=== PATIENT | female | born 1975 | race Caucasian/White ===

== ENCOUNTER 2021-03-04 07:23 | Outpatient (RCR) | payer BC, SELFPAY | END 2021-06-02 23:59 | disposition home or self-care (01) | LOC: ANHVASCINF 07:23 | PROVIDERS: Visit Provider Internal Medicine Endocrinology, Diabetes & Metabolism | DX: R94.7 Abnormal results of other endocrine function studies (principal) | CPT/HCPCS: 36415; 36592; 82533; 96372; J0834 ==

== ENCOUNTER 2022-03-02 16:56 | Outpatient (CLI) | payer BC, SELFPAY ==
--- NOTE | ~2022-03-02 | XR_ITS ---
EXAMINATION: XR sacrum coccyx min 2V INDICATION: Sensory urge incontinence TECHNIQUE: Three views of the sacrum and coccyx are obtained. COMPARISON: None available FINDINGS: Bone alignment is normal. There is no fracture. A bone island is noted in the left ilium. A stimulator device is implanted in the posterior subcutaneous tissues of the right buttock. Its lead enters the left pelvis through the left S3 neural foramen. IMPRESSION: 1. No acute osseous abnormality. 2. Stimulator device implanted in the posterior subcutaneous tissues of the right buttock with its le ad entering the left pelvis through the left S3 neural foramen. Reviewed, dictated and finalized at location F. IMPRESSION: 1. No acute osseous abnormality. 2. Stimulator device implanted in the posterior subcutaneous tissues of the rig ht buttock with its lead entering the left pelvis through the left S3 neural fo ramen.
== END 2022-03-02 16:57 | disposition home or self-care (01) ==
PROVIDERS: Visit Provider Urology
DX: N39.41 Urge incontinence (principal)
CPT/HCPCS: 72220

== ENCOUNTER 2025-01-22 13:03 | Outpatient (CLI) | payer BC, SELFPAY ==
--- NOTE | ~2025-01-22 | CT_ITS ---
CT of the Abdomen and Pelvis: Indication: Gross hematuria Technique: 2.5 mm axial scans were obtained through the abdomen and pelvis prior to and following in travenous administration of 130 cc of Omnipaque 350. Dose reduction technique was used on this scan b y utilizing automated exposure control and iterative reconstruction technique. The dose-length produc t (DLP) was 1492.23 mGy-cm. Findings: Scans through the lung bases are unremarkable. The liver, spleen, pancreas, adrenals and left kidney are within normal limits. Punctate nonobstructi ng right renal stones are present. Cholecystectomy clips are present. No evidence of aortic aneurysm. No lymphadenopathy. No bowel obstruction or bowel wall thickening. There is no evidence to suggest acute appendicitis. Images through the pelvis were performed. Urinary bladder unremarkable. Status post hysterectomy. No pelvic mass. No ascites. Impression: Punctate nonobstructing right renal stones. Reviewed, dictated and finalized at [facility]. Impression: Punctate nonobstructing right renal stones.
--- OUTSIDE RECORDS SUMMARY | 2025-01-22 13:09 | XMS_ITS | Clinical Summary ---
Author Organization [facility] Address [address] [place] [address] Care Team Providers Care Rrts Name Role Phone Leilani Wilson MD Primary Care Provider [phone] Lyle Reese MD Unavailable [phone] Josep Bernal MD Unavailable [phone] Source Comments [facility],non-owned Affiliates and Associated Physician Practices is amultiple site organization consisting of ambulatory clinics and hospital sitesin [place], [place], [place] and [place]. This disclosure is being madepursuant to the Care Everywhere program and may not contain all information available regarding this patient. Last updated 18.[facility] Allergies Active Allergy Reactions Criticality Noted Date Comments Abaloparatide Dizziness,Fever,GI Discomfort,Headache,Pa lpitations 07/29/2024 Baclofen Other 08/21/2024 UPTIGHT AND MADE HER WANT TO CLIMB THE OLSON Gabapentin Other 08/11/2024 Face numbness Pregabalin Other 08/11/2024 Lip numbness, JERKING Milnacipran Unknown 10/07/2024 Worsened depression and fibromyalgia Medications * This document contains information received from the source organization and may not represent a complete record from that organization. * Be aware that medications may not be up to date on this document. Alwaysverify current medications with the patient. meclizine (Antivert) 12.5 MG tabletIndications :Dizziness Take 2 (two) tablets by mouth 3 times daily as needed for Dizziness Reasons: Dizzy 09/03/19 23 Active cycloSPORINE (Restasis) 0.05 % ophthalmic suspension Instill 1 (one) drop into both eyes at bedtime Per patient been doing twice a day 08/02/20 22 Active clonazePAM (KlonoPIN) 2 MG tabletIndications :RLS Take 1 (one) tablet by mouth 3 times daily as needed PATIENT ONLY TAKES 2 TABS AT BEDTIME Reasons: RLS Active multivitamin daily tablet Take 1 (one) tablet by mouth daily with food Active sucralfate (Carafate) 1 GM/10ML suspension TAKE 10 ML BY MOUTH FOUR TIMES DAILY NEEDED 420 mL 5 08/23/20 23 Active simethicone (Gas-X) 125 MG capsule Take 1 (one) capsule by mouth as needed Active acetaminophen (Tylenol) 500 MG tablet Take 2 (two) tablets by mouth every 4 hours as needed for Fever or Pain Maximum allowable Acetaminophen amount = 4 Grams (4000 mg) / 24 hours. Active SUMAtriptan (Imitrex) 100 MG tabletIndications :History of migraine headaches Take medication at the onset of migraine, may repeat in 2 hours 9 tablet 5 01/10/20 24 Active Misc. Devices (Walker) MISCIndications:M ultiple falls,Unstable gait Use 1 device once daily 1 Each 01/17/20 24 Active prochlorperazine (Compazine) 10 MG tabletIndications :Nausea without vomiting Take 1 (one) tablet by mouth every 8 hours as needed for Nausea/Vomiting 90 tablet 3 03/04/20 24 Active ondansetron (Zofran) 8 MG tabletIndications :Nausea and Vomiting Take 1 (one) tablet by mouth every 8 hours as needed for Nausea/Vomiting Reasons: Nausea and Vomiting 05/12/20 24 Active magnesium hydroxide (Chuckie's Chewable) 311 MG chew tablet Take 1 (one) tablet by mouth every 12 hours as needed Active cetirizine (ZyrTEC) 10 MG tabletIndications :Seasonal Allergic Rhinitis Take 1 (one) tablet by mouth once daily Reasons: Hayfever 90 tablet 1 07/01/20 24 Active dexlansoprazole (Dexilant) 60 MG capsule Take 1 (one) capsule by mouth at bedtime 90 capsule 2 08/06/20 24 Active colchicine 0.6 MG tabletIndications :Blister of skin,Fibromyalgia ,H/O oral aphthous ulcers,Behcet's disease (HCC) Take 1 (one) tablet by mouth 2 times daily 180 tablet 1 08/14/20 24 Active hydrOXYzine HCl (Atarax) 25 MG tabletIndications :Anxiety Take 1 (one) tablet by mouth 3 times daily as needed Reasons: Feeling Anxious 270 tablet 1 08/14/20 24 Active zonisamide (Zonegran) 100 MG capsuleIndication s:Chronic nonintractable headache, unspecified headache type Take 3 (three) capsules by mouth at bedtime 270 capsule 1 08/14/20 24 Active cyclobenzaprine (Flexeril) 10 MG tabletIndications :Closed nondisplaced spiral fracture of shaft of right femur, sequela,Iliotibia l band syndrome of left side,Sensation of pressure in bladder area Take 1 (one) tablet by mouth 3 times daily 270 tablet 1 08/26/20 24 Active cyanocobalamin (Vitamin B-12) injectionIndicati ons:Vitamin B12 deficiency Inject 1,000 (one thousand) mcg subcutaneously every 14 days 1 mL 5 08/26/20 24 Active B-D 3CC LUER-NI SYR 25GX5/8 25G X 5/8 3 ML MISC INJECT 1 SYRINGE SUBCUTANEOUSLY EVERY 14 DAY 08/26/20 24 Active DULoxetine (Cymbalta) 30 MG capsuleIndication s:Fibromyalgia Take 1 (one) capsule by mouth once daily 90 capsule 1 10/07/19 25 Active meloxicam (Mobic) 15 MG tablet Take 1 (one) tablet by mouth once daily 10/30/19 25 Active HYDROcodone-aceta minophen ([place]) 5-325 MG tabletIndications :Facial pain Take 1 (one) tablet by mouth every 12 hours as needed for Pain 8 tablet 11/15/19 25 Active tiZANidine (Zanaflex) 4 MG tabletIndications :Trigeminal herpes zoster,Yeast infection,Fibromy algia,Spasm Take 1 (one) tablet by mouth at bedtime Takes flexeril during the day this works better at bedtime and flexeril better during the day 90 tablet 1 11/18/19 25 Active Artificial Tear Solution (SOOTHE XP OP) 1-2 drops by Ophthalmic route once daily ALTERNATES WITH RESTASIS Active calcium citrate (Citracal 950) 950 MG tablet Take 1 (one) tablet by mouth once daily Active nitrofurantoin monohyd macro crystals (Macrobid) 100 MG capsule Take 1 (one) capsule by mouth 2 times daily 01/18/20 25 Active oxyCODONE-acetami nophen (Percocet) 7.5-325 MG tabletIndications :S/p left hip fracture Take 1 (one) tablet by mouth every 12 hours 12 tablet 01/21/20 25 Active amitriptyline (Elavil) 75 MG tabletIndications :Fibromyalgia Take 1 (one) tablet by mouth at bedtime 90 tablet 1 01/22/20 25 Active SYRINGE/NEEDLE, DISP, 1 ML 25G X 5/8 1 ML MISCIndications:V itamin B12 deficiency Inject 1 syringe subcutaneously every 14 days 50 Each 08/26/20 24 025 Disconti nued(Lis t Clean-Up ) fluconazole (Diflucan) 200 MG tabletIndications :Yeast infection Take 1 (one) tablet by mouth once daily 2 tablet 11/18/19 25 025 Disconti nued(Tx Complete ) fluconazole (Diflucan) 200 MG tabletIndications :Yeast infection Take 1 (one) tablet by mouth once daily 5 tablet 11/20/19 25 025 Disconti nued(Tx Complete ) acyclovir (Zovirax) 400 MG tabletIndications :Trigeminal herpes zoster Take 1 (one) tablet by mouth 3 times daily 90 tablet 12/05/19 25 025 Disconti nued(Tx Complete ) pregabalin (Lyrica) 25 MG capsuleIndication s:Trigeminal herpes zoster Take 1 (one) capsule by mouth 3 times daily 45 capsule 12/11/19 25 12/25/ 025 Disconti nued(Tx Complete ) amoxicillin-clavu lanate (Augmentin) 875-125 MG tablet Take 1 (one) tablet by mouth 2 times daily for 10 days 20 tablet 12/15/19 25 025 Disconti nued(Tx Complete ) fluconazole (Diflucan) 150 MG tablet Take 1 (one) tablet by mouth every 3 days 3 tablet 1 12/15/19 25 025 Disconti nued(Tx Complete ) amitriptyline (Elavil) 75 MG tabletIndications :Fibromyalgia Take 1 (one) tablet by mouth at bedtime 90 tablet 1 12/17/19 25 025 Disconti nued(Reo rder) oxyCODONE-acetami nophen (Percocet) 7.5-325 MG tabletIndications :S/p left hip fracture Take 1 (one) tablet by mouth every 8 hours as needed for Pain 12 tablet 01/15/20 25 025 Disconti nued(Reo rder) Active Problems Problem Noted Date Diagnosed Date Overactive bladder 01/20/2025 Sensory urge incontinence 01/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 Severe major depressive disorder 11/24/2024 Right corneal abrasion 11/14/2024 Pain in both feet 10/07/2024 Pain of right hip 09/01/2024 Migraine without aura and wi th status migrainosus, not intractable 05/25/2024 Decreased peripheral vision of left eye 05/25/20 Closed intertrochanteric fra cture of right femur, initial encounter 05/19/2024 Status post open reduction a nd internal fixation (ORIF) of fracture 05/19/2024 Long-term current use of benzodiazepine 05/19/20 Fall from ground level 05/19/2024 Encounter for pain management 05/19/2024 Status post balloon dilatation of esophageal str icture 05/19/2024 Chronic anemia 05/19/2024 Peripheral vision loss 05/19/2024 Migraine headache 05/19/2024 Secondary hypercortisolism 05/19/2024 History of cholecystectomy 05/19/2024 History of appendectomy 05/19/2024 Class 1 obesity due to exces s calories with serious comorbidity and body mass index (BMI) of 32.0 to 32.9 in adult 05/19/2024 History of coronary angiogram 05/19/2024 Closed fracture of right hip, initial encounter 05/09/2024 Syncope and collapse 01/15/2024 Injury of head, initial encounter 01/15/2024 Palpitations 12/16/2023 Pneumonia of both lower lobes due to infectious organism 12/16/2023 Bilateral knee pain 12/16/2023 Left ankle pain 12/16/2023 Fibromyalgia 12/25/2022 Non-intractable vomiting 11/27/2022 Pituitary adenoma 10/25/2022 Hypothyroidism 07/17/2022 Abnormal EKG 07/12/2022 Sleep disturbance 07/12/2022 Flank pain 02/07/2022 Post menopausal syndrome 12/05/2021 Overview (11/27/2022): Last Assessment & Plan: Symptomatic with insomnia, hot flashes , hair loss and weight gain Patient had hysterectomy - recommended evaluation by Gynecology for possible use of ERT if indicated based on symptoms. Adhesive capsulitis of left shoulder 08/23/2021 Hypotensive episode 01/25/2021 Colitis 01/23/2021 Abnormal gait 11/11/2020 Memory impairment 11/11/2020 Abnormal thyroid function test 10/27/2020 Overview (11/27/2022): Last Assessment & Plan: Clinically euthyroid Thyroid exam shows no enlargement, masses, nodules, or tenderness Physical exam shows no bradycardia, non-pitting edema, or delayed relaxation of tendon reflexes No evidence of hyponatremia on recent basic metabolic panel Latest TSH 4.07 and Free T4 0.85 (09/15 and 09/16) Plan: Repeat thyroid function studies (TSH and Free T4) for thoroughness in setting of complex constellation of symptoms without clear etiology, but likely would not warrant treatment Adrenal insufficiency 10/27/2020 Overview (11/27/2022): Last Assessment & Plan: Etiology of low cortisol <1 at OSH unclear and perhaps secondary to corticosteroid-induced adrenal suppression; no associated pigmentation changes of the skin and mucosa; no alterations in potassium, sodium Adequate response to recent corticotropin (standard 250 mcg) stimulation test (09/17/2020) Basal: 11.2 mcg/dL 30-min: 20 mcg/dL 60-min: 21 mcg/dL Imaging: CT or MRI normal pituitary and adrenal glands Plan: No maintenance therapy required Decreased vision in both eyes 09/21/2020 Overview (11/27/2022): Hospital F/U for decreased vision, eye pain OU. Feels like eyes are straining too hard to see, especially distance (wearing glasses) and sometimes the vision goes double (even if she closes one eye). Vision OD seems like it's worse compared to last week, or trying to compensate for the left eye vision. Can still read with her right eye. Had difficulty seeing her work on the computer yesterday. Vision seemed more blurry OU in 03/2020, when she got a new prescription from her strike plate attacher. Began having dull pain at the back of both eyes in late Aug. Saw her strike plate attacher (Dr. Ajay Desir in [place]) again, who performed testing and referred her to a neurologist. Since , she's had additional symptoms including dizziness, headaches, imbalance (needs to hold on to something while walking to avoid falling), difficulty rising from a chair (cannot flex at hips). She says that her neurologist wants to order an MRI of her spinal cord, and she's having her bladder stimulator removed soon so that she can undergo the test. No eye drops. Hx gastric bypass surgery in 2004. Last Assessment & Plan: --Exam today with VA decreased at distance (OD: 20/500, OS: 20/150) but otherwise fairly normal at near (OD: J1+ (20/20), OS: J3 (20/40)). No APD on exam today, color vision decreased OU, stereovision testing with 7/9 stereodots, 3/3 animals). --Anterior and posterior exams otherwise stable and reassuring --OCT RNFL, GCC, macula all done and wnl today --Reviewed imaging w/ Dr. Turcios as well optic nerve appears normal appearing without signal abnormalities. No lesions on MRI brain as well. --Overall exam today reassuring for health of the eye with exam and testing done in clinic today. Plan: --Discussed with patient that given objective data has been reassuring today, we would hope that she has meaningful visual recovery still. However, strict return precautions given for any changes or worsening of visual symptoms. --Will RTC next available for Goldmann [facility] (tech only visit) --RTC 6 weeks for repeat DFE --Will call patient to schedule ERG as well Hospital F/U for decreased vision, eye pain OU. Feels like eyes are straining too hard to see, especially distance (wearing glasses) and sometimes the vision goes double (even if she closes one eye). Vision OD seems like it's worse compared to last week, or trying to compensate for the left eye vision. Can still read with her right eye. Had difficulty seeing her work on the computer yesterday. Vision seemed more blurry OU in 03/2020, when she got a new prescription from her strike plate attacher. Began having dull pain at the back of both eyes in late Aug. Saw her strike plate attacher (Dr. Ajay Desir in [place]) again, who performed testing and referred her to a neurologist. Since , she's had additional symptoms including dizziness, headaches, imbalance (needs to hold on to something while walking to avoid falling), difficulty rising from a chair (cannot flex at hips). She says that her neurologist wants to order an MRI of her spinal cord, and she's having her bladder stimulator removed soon so that she can undergo the test. No eye drops. Hx gastric bypass surgery in 2004. Last Assessment & Plan: --Exam today with VA decreased at distance (OD: 20/500, OS: 20/150) but otherwise fairly normal at near (OD: J1+ (20/20), OS: J3 (20/40)). No APD on exam today, color vision decreased OU, stereovision testing with 7/9 stereodots, 3/3 animals). --Anterior and posterior exams otherwise stable and reassuring --OCT RNFL, GCC, macula all done and wnl today --Reviewed imaging w/ Dr. Turcios as well optic nerve appears normal appearing without signal abnormalities. No lesions on MRI brain as well. --Overall exam today reassuring for health of the eye with exam and testing done in clinic today. Plan: --Discussed with patient that given objective data has been reassuring today, we would hope that she has meaningful visual recovery still. However, strict return precautions given for any changes or worsening of visual symptoms. --Will RTC next available for Goldmann VF (tech only visit) --RTC 6 weeks for repeat DFE --Will call patient to schedule ERG as well History of Andie-en-Y gastric bypass 11/14/2019 Urinary tract infection without hematuria 2019 Chronic fatigue 10/24/2019 Overview (11/27/2022): Last Assessment & Plan: Check fasting blood work between 7-8am for cortisol. Further testing will be based on these results. Heart palpitations 10/24/2019 Urinary tract infection with hematuria 9 Tendinitis of right shoulder 03/18/2019 Conversion disorder 04/04/2018 Folate deficiency 04/04/2018 Esophageal dysphagia 02/12/2018 Overview (11/27/2022): Last Assessment & Plan: Multiple scopes and never inflammation or stricture. 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 Last Assessment & Plan: Improved after dilation. She also maintains on Dexilant as well as Carafate. She can wean down the Carafate at this time due to her constipation Last Assessment & Plan: Multiple scopes and never inflammation or stricture. 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 Last Assessment & Plan: Improved after dilation. She also maintains on Dexilant as well as Carafate. She can wean down the Carafate at this time due to her constipation Heartburn 02/12/2018 Overview (11/27/2022): Last Assessment & Plan: Is possible at the ulceration of the patient's anastomosis which required dilation by balloon recently was causing some functional outlet obstruction of her stomach and us worsening of reflux. Still the patient should not have problems with dysphagia or heartburn while she is on all these medications. 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 Will begin mirtazapine 7.5 mg q.h.s. sulfur this will help her nausea and reduce her visceral hypersensitivity. I would then like to see her the time of endoscopy following a barium esophagram and we can make sure she does not have a stricture. I would likely empirically dilate her esophagus at the time. It also reinspect her anastomotic ulcer and see if the dilation was any benefit. I would also consider a upper GI small bowel series however I would be somewhat concerned about impaction of the barium due to prior history of constipation. Last Assessment & Plan: Is possible at the ulceration of the patient's anastomosis which required dilation by balloon recently was causing some functional outlet obstruction of her stomach and us worsening of reflux. Still the patient should not have problems with dysphagia or heartburn while she is on all these medications. 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 Will begin mirtazapine 7.5 mg q.h.s. sulfur this will help her nausea and reduce her visceral hypersensitivity. I would then like to see her the time of endoscopy following a barium esophagram and we can make sure she does not have a stricture. I would likely empirically dilate her esophagus at the time. It also reinspect her anastomotic ulcer and see if the dilation was any benefit. I would also consider a upper GI small bowel series however I would be somewhat concerned about impaction of the barium due to prior history of constipation. Iron deficiency anemia 04/20/2017 H/O gastric bypass 04/20/2017 Vitamin B12 deficiency 04/20/2017 Chest pain 12/30/2015 Interstitial cystitis 09/25/2015 Anxiety disorder 11/15/2011 Leukocytosis 11/15/2011 Small bowel obstruction 11/15/2011 Resolved Problems Problem Noted Date Diagnosed Date Resolved Date Rash 11/14/2024 12/12/2024 Pharyngitis 11/14/2024 11/28/2024 Acute otitis media 11/14/2024 5 Autoimmune disease 09/04/2024 5 Myelopathy 10/25/2022 03/14/2024 Other chronic pancreatitis 10/25/2022 0 04/01/2024 Simple febrile convulsions 10/25/2022 0 03/14/2024 Dehydration 04/25/2022 05/09/2022 Encounters Date Type Department Care Team Description 01/21/[address] [phone] Leilani Wilson MD MEDICATION REFILL 01/20/2025 1:00 PM CDT Office Visit [address] [address] Leilani Wilson MD Overactive bladder (Primary Dx); Sensory urge incontinence; S/p left hip fracture; Preoperative clearance 01/14/2025 Orders Only [address] [phone] Leilani Wilson MD S/p left hip fracture 01/13/2025 1:00 PM CDT Office Visit [facility] - Podiatry [address] [place] [phone] Polo Walton, CAMILLE Foot pain, bilateral (Primary Dx); Gait instability; Nerve pain; Gastrocnemius equinus of left lower extremity; Weakness of both lower extremities 01/06/2025 Results Follow-Up [address] [phone] Leilani Wilson MD 01/06/2025 Results Follow-Up [address] [phone] Leilani Wilson MD 01/05/2025 11:44 AM CDT - 01/05/2025 11:59 PM CDT Hospital Encounter [facility] RADI[facility] [address] [place] [address] Polo Walton, CAMILLE Discharge Disposition: Home or Self Care 01/05/2025 10:45 AM CDT - 01/05/2025 11:43 AM CDT Hospital Encounter [facility] - Laboratory [address] [place] [address] Polo Walton, CAMILLE Discharge Disposition: Home or Self Care 01/05/2025 10:37 AM CDT - 01/05/2025 10:44 AM CDT Hospital Encounter [facility] Neurosciences [address] [address] Polo Walton, CAMILLE Discharge Disposition: Home or Self Care 12/31/2024 Orders Only [address] [phone] Leilani Wilson MD Recurrent UTI 12/25/2024 12:00 PM CDT Office Visit [address] [phone] Leilani Wilson MD Recurrent UTI (Primary Dx); Multilevel spine pain 12/16/2024 Orders Only [address] [phone] Leilani Wilson MD Fibromyalgia 12/14/2024 1:36 PM CDT - 12/14/2024 3:22 PM CDT Emergency ER at [facility] [address] [place] [address] Morgan Meza, PROCESS LEAD-WIRELINE OPERATOR Flank pain; Acute cystitis with hematuria; Lower resp. tract infection Discharge Disposition: Home or Self Care 12/10/2024 Orders Only [address] [phone] Leilani Wilson MD Trigeminal herpes zoster 12/04/2024 Orders Only [address] [address] Leilani Wilson MD Trigeminal herpes zoster 12/02/2024 10:14 AM CDT - 12/02/2024 11:59 PM CDT Hospital Encounter [facility] [address] [place] [address] Babatunde Tyler MD Discharge Disposition: Home or Self Care 12/02/2024 Travel 11/25/2024 Telephone [facility] - Podiatry [address] [phone] Micheal Osman, DPM Scheduling (was able to schedule same day MRI at [facility] for 11/25; called pt to advise. She currently has shingles. She will call to schedule once she is recovered. I apologized for initial delay in scheduling.) 11/24/2024 Telephone [facility] - Podiatry [address], [address] [place] [address] Micheal Osman, DPM General 11/20/2024 2:43 PM CDT - 11/20/2024 11:59 PM CDT Hospital Encounter [facility] [address] [place] [address] Jaylen Mims MD Discharge Disposition: Home or Self Care 11/19/2024 Orders Only [address] [phone] Leilani Wilson MD Yeast infection 11/17/2024 10:20 AM CDT Office Visit [address] [phone] Leilani Wilson MD Trigeminal herpes zoster (Primary Dx); Yeast infection; Fibromyalgia; S/p left hip fracture; Spasm; Osteoporosis with current pathological fracture, unspecified osteoporosis type, initial encounter; Severe major depressive disorder 11/14/2024 1:29 PM CDT - 11/14/2024 5:45 PM CDT Emergency ER at [facility] [address] [place] [address] Leonarda Petersen APRN-ACOSTA Abrasion of right cornea, initial encounter; Rash; Pharyngitis, unspecified etiology; Acute otitis media, unspecified otitis media type; Facial pain Discharge Disposition: Home or Self Care 11/14/2024 11:00 AM CDT Office Visit [facility] [address] [place] [phone] Herpes zoster with ophthalmic complication, unspecified herpes zoster eye disease (Primary Dx) 11/14/2024 Travel 11/12/2024 Telephone [facility] - Podiatry [address] [place] [address] Polo Walton, L[place] Appointment 11/12/2024 Telephone [facility] - Podiatry [address] [place] [address] Polo Walton DPM Appointment 11/11/2024 12:30 PM CDT - 11/11/2024 11:59 PM CDT Hospital Encounter [facility] [address] [place] [address] Polo Walton, DPM Discharge Disposition: Home or Self Care 11/11/2024 12:15 PM CDT - 11/11/2024 12:29 PM CDT Hospital Encounter [facility] [address] [place] [address] Jaylen Mims MD Discharge Disposition: Home or Self Care 11/11/2024 11:30 AM CDT Office Visit [facility] - Podiatry [address] [place] [phone] Polo Walton, DPVinicius Pain in both feet (Primary Dx); Gait instability; Gastrocnemius equinus of left lower extremity; Nerve pain; Weakness of both lower extremities; Complex regional pain syndrome type 2 of both lower extremities 10/29/2024 3:30 PM 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 (AF LURIA, FLUZONE TRIVALENT; 6MO+) (IIV3) 05/26/2021 COVID MODERNA BIVALENT 12Y+ 50MCG/0.5ML 07/28/20 22 Covid Moderna primary monovalent 12+ yr 0.5mL ,12/02/2020 FLU VACCINE QUAD IIV4 SPLIT 0.25 ML IM 9 FLU, HISTORIC VACCINE 07/18/2022 HEP B VACCINE, ADULT 3 DOSE 04/30/2024, 4 HIB VACCINE 11/01/2012,11/01/2012 INFLUENZA VACCINE, CELL CULT URE, QUADR. (FLUCELVAX QUADRIVALENT; 6MO+) (CCIIV4) 06/14/2020 INFLUENZA VACCINE, QUADR. (F LUZONE; FLULAVAL; FLUARIX; AFLURIA QUADRIVALENT; 6MO+), 0.5 ML (IIV4) 07/10/2023 INFLUENZA VACCINE, TRIV. (FL UZONE; FLULAVAL; FLUARIX; AFLURIA TRIVALENT; 6MO+), 0.5 ML (IIV3) 05/30/2024 MMR 06/27/2019 PNEUMOCOCCAL PPSV23 01/15/2025 TDAP (7yrs+) 04/01/2024 Family History Medical History Relation Name Comments CAD (Coronary Artery Disease) Father CAD (Coronary Artery Disease) Maternal Grandfather CAD (Coronary Artery Disease) Maternal Grandmother Cancer - Breast Maternal Grandmother Diabetes - Type 2 Maternal Grandmother CAD (Coronary Artery Disease) Mother Diabetes - Type 2 Mother Cancer - Colon Other uncle CAD (Coronary Artery Disease) Paternal Grandfather CAD (Coronary Artery Disease) Paternal Grandmother Cancer - Ovarian Neg Hx Relation Name Status Comments Father Maternal Grandfather Maternal Grandmother Mother Other uncle Alive Paternal Grandfather Paternal Grandmother Social History Tobacco Use Types Packs/Day Years Used Date Smoking Tobacco: Never Smokeless Tobacco: Never Tobacco Cessation:Counseling Given: Not Answered Alcohol Use Standard Drinks/Week Comments Never 0 (1 standard drink = 0.6 oz pur e alcohol) OASIS D0700: Social Isolation Answer Da te Recorded Frequency of experiencing loneliness or isolatio n Sometimes 07/22/2024 OASIS A1250: Transportation Answer Date Recorded Lack of Transportation (Medical) No 07/22/2024 Lack of Transportation (Non-Medical) No 07/22/2024 Patient Unable or Declines to Respond No 07/22/2024 OASIS B1300: Health Literacy Answer Chavo e Recorded Frequency of needing help to read materials from doctor or pharmacy Never 07/22/2024 AUDIT-C Answer Date Recorded Q1: How often do you have a drink containing alcohol? Never 11/14/2024 Q2: How many drinks containi ng alcohol do you have on a typical day when you are drinking? Patient does not drink Q3: How often do you have si x or more drinks on one occasion? Never 11/14/2024 Overall Financial Resource Strain (CARDIA) Answe r Date Recorded How hard is it for you to pa y for the very basics like food, housing, medical care, and heating? Not hard at all 05/25/2024 PHQ-2 Answer Date Recorded Patient Health Questionnaire-2 Score 6 01/20/2025 [facility] Occupat ional Health - Occupational Stress Questionnaire Answer Date Recorded Do you feel stress - tense, restless, nervous, or anxious, or unable to sleep at night because your mind is troubled all the time - these days? To some extent 05/25/2024 Hunger Vital Sign Answer Date Recorded Within the past 12 months, y ou worried that your food would run out before you got the money to buy more. Never true 05/25/20 24 Within the past 12 months, t he food you bought just didn't last and you didn't have money to get more. Never true 05/25/2024 PRAPARE - Transportation Answer Date Re corded In the past 12 months, has l ack of transportation kept you from medical appointments or from getting medications? No 05/05 In the past 12 months, has l ack of transportation kept you from meetings, work, or from getting things needed for daily living? No 05/25/2024 Housing Stability Vital Sign Answer Chavo e Recorded In the last 12 months, was t here a time when you were not able to pay the mortgage or rent on time? No 05/25/2024 In the last 12 months, how many places have you lived? 1 05/25/2024 In the last 12 months, was t here a time when you did not have a steady place to sleep or slept in a care home (including now)? 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 file Not on file Not on file Last Filed Vital Signs Vital Sign Reading Time Taken Comments Blood Pressure 122/78 01/20/2025 12:53 PM CDT Pulse 86 01/20/2025 12:53 PM CDT Temperature 36.9 C (98.5 F) 01/20/2025 12:53 PM CDT Respiratory Rate 01/13/2025 1:09 PM CDT Oxygen Saturation 97% 01/20/2025 12:53 PM CDT Inhaled Oxygen Concentration - - Weight 87.8 kg (193 lb 8 oz) 01/20/2025 12:53 PM CDT Height 170.2 cm (5' 7 ) 01/20/2025 12:53 PM CDT Body Mass Index 30.31 01/20/2025 12:53 PM CDT Plan of Treatment Upcoming Encounters Date Type Department Care Team (Late st Contact Info) Description 02/04/2025 1:00 PM CDT Office Visit [facility] - Endocrinology [address] [facility] [place] [address] Kelby Nicole MD [address] [facility] [place] [id number] Health Maintenance Due Date Last Done Comments COLOGUARD (AGES 45-75) - COLON CA SCREENING 1974 CT COLONOGRAPHY - COLON CA SCREENING 1974 FIT - COLON CA SCREENING 1974 FLEX SIG - COLON CA SCREENING 1974 PAP SMEAR 1974 COVID-19 VACCINE (4 - 2023- season) 2024 07/28/2022, 12/30/2020, 12/02/2020 ZOSTER VACCINE (1 of 2) 2024 HEPATITIS B VACCINE (3 of 3 - 19+ 3-dose series) 10/02/2024 04/30/2024, 04/01/2024 PNEUMOCOCCAL VACCINE 50+ (2 of 2 - PCV) 01/15/2026 01/15/2025 MAMMOGRAM 06/18/2026 06/18/2024, 11/01, 11/13/2016, Additional history exists SCREENING FOR DIABETES 12/15/2027 , 09/04/2024, 07/03/2024, Additional history exists COLON MONITORING 01/26/2028 01/25/2018, 01/25/2018 COLONOSCOPY - COLON CA SCREENING 01/26/2028 01/25/2018, 01/25/2018 Colorectal Cancer Screening 01/26/2028 LIPID TESTING 09/04/2029 09/04/2024, 06/04, 08/17/2021, Additional history exists DTAP/TDAP/TD VACCINES (2 - Td or Tdap) 04/01/2034 04/01/2024 HIB VACCINE Aged Out 11/01/2012, 11/01/2012 No lo nger eligible based on patient's age to complete this topic HEPATITIS C SCREENING Completed 10/03/2022 HIV SCREENING Completed 10/03/2022 INFLUENZA VACCINE Completed 05/30/2024, , 07/18/2022, Additional history exists DEPRESSION SCREENING Completed 09/04/2024, 09/04/2023, 09/28/2022, Additional history exists HPV VACCINE Aged Out No longer eligi ble based on patient's age to complete this topic MENINGOCOCCAL (Group B) VACCINE SHARED DECISION-MAKING Aged Out No longer eligible based on patient's age to complete this topic MENINGOCOCCAL GROUPS A/C/Y/W VACCINE Aged Out No longer eligible based on patient's age to complete this topic Medical Devices Implanted Type Area Statistical Machine Servicer Device Identifier Shelf Expiration Date Model / Serial / Lot Loop Recorder [employer] Description:Reveal Linq Ld Nrstm Intstm 4.32mm Spc L28 Cm Qdpl - [id number] Implanted:Qty: 1 on 09/22/2020 by Vito Oliva, DO at [facility] [employer] 07/15/2022 [id number] / [id number] / [id number] Nrstm Impl 2inx1.7in Intstm Ii Thk.3in - [id number] Implanted:Qty: 1 on 09/22/2020 by Vito Oliva, DO at [facility] [employer] 08/16/2021 [id number] / [id number] / [id number] Env Absb Med 2.7x2.5in Polyarylate - [id number] Implanted:Qty: 1 on 09/22/2020 by Vito Oliva, DO at [facility] Right: Buttocks [employer] 03/20/2021 [id number] / [id number] / [id number] Screw 7mm 100mm Jean-Paul Perico Ss Strl Bone - [id number] Implanted:Qty: 2 on 05/09/2024 by Shiela Hollis MD at [facility] Right: Hip [employer] 05/10/2024 [id number] / [id number] / NA Screw 5mm 35mm Lopro Intnl Hex Fem Trgn Implanted:Qty: 1 on 05/19/2024 by Shiela Hollis MD at [facility] Right: Femur [employer] 10/22/2033 [id number] / / [id number] Nail Im 10mm 18cm Trgn Intrtn Intrtroch Implanted:Qty: 1 on 05/19/2024 by Shiela Hollis MD at [facility] Right: Femur [employer] 11/25/2033 [id number] / / [id number] Kit Screw 105mm 4.5mm Intrtn Troch Ti Implanted:Qty: 1 on 05/19/2024 by Shiela Hollis MD at [facility] Right: Femur [employer] 03/28/2032 [id number] / / [id number] Explanted Type Area Statistical Machine Servicer Device Identifier Shelf Expiration Date Model / Serial / Lot Kt Stm Intstm Pt Prgmr [facility]planted:Qty : [facility] [facility] [employer] [id number] / / Screw 7mm 90mm Jean-Paul Perico Ss Strl Bone 16 - [id number] Explanted:Qty : 1 on 05/09/[address] [facility] Right: Hip [employer] 05/10/2024 [id number] / [id number] / NA Procedures Procedure Name Priority Date/Time Associated Diagnosis Comments XR LUMBAR SPINE 4VW OR MORE Routine 01/05/2025 12:16 PM CDT Multilevel spine pain XR THORACIC SPINE 3VW Routine 01/05/2025 12:16 PM CDT Multilevel spine pain XR CERVICAL SPINE 4 OR 5VW Routine 01/05/2025 12:16 PM CDT Multilevel spine pain URINE MICROSCOPIC ONLY REFLEX TO CULTURE Routine 01/05/2025 10:50 AM CDT Recurrent UTI URINALYSIS REFLEX MICROSCOPIC REFLEX CULTURE Routine 01/05/2025 10:50 AM CDT Recurrent UTI CULTURE URINE Routine 01/05/2025 10:50 AM CDT Recurrent UTI EMG WITH NERVE CONDUCTION STUDY Routine 01/05/2025 Pain in both feet Nerve pain Complex regional pain syndrome type 2 of both lower extremities CT RENAL STONE STAT 12/14/2024 2:18 PM CDT Flank pain URINE MICROSCOPIC ONLY REFLEX TO CULTURE STAT 12/14/2024 2:13 PM CDT URINALYSIS REFLEX MICROSCOPIC REFLEX CULTURE STAT 12/14/2024 2:13 PM CDT LIPASE BLOOD STAT 12/14/2024 2:13 PM CDT COMPREHENSIVE METABOLIC PANEL STAT 12/14/2024 2:13 PM CDT CBC W AUTO DIFFERENTIAL STAT 12/14/2024 2:13 PM CDT CULTURE URINE STAT 12/14/2024 2:13 PM CDT XR HIP RIGHT 2VW OR MORE Routine 12/02/2024 10:23 AM CDT Encounter for disability determination CALCIUM URINE TIMED Routine 11/20/2024 2 :43 PM CDT Osteoporosis with current pathological fracture, unspecified osteoporosis type, initial encounter CREATININE URINE TIMED Routine 11/20/2024 2:43 PM CDT Osteoporosis with current pathological fracture, unspecified osteoporosis type, initial encounter CULTURE STREP GROUP A STAT 11/14/2024 2:27 PM CDT SARS-COV-2 (COVID-19) FLU A/B RSV PCR RAPID STAT 11/14/2024 2:27 PM CDT STREP A SCREEN DIRECT W RFLX STREP A CULTURE STAT 11/14/2024 2:27 PM CDT XR FOOT BILAT WT BEARING 3VW Routine 11/11/2024 12:55 PM CDT Pain in both feet PTH INTACT Routine 11/11/2024 12:24 PM CDT Osteoporosis with current pathological fracture, unspecified osteoporosis type, initial encounter LIPID PROFILE Routine 09/04/2024 11:59 AM MANAGER OF WAREHOUSE Dyslipidemia MAMMO BILAT SCREENING W VINICIO Routine 06/18/2024 10:22 AM CDT Encounter for screening mammogram for malignant neoplasm of breast HEPATITIS C ANTIBODY Routine 10/03/2022 8:37 AM MANAGER OF WAREHOUSE Encounter for hepatitis C screening test for low risk patient HIV-1 HIV-2 ANTIBODY + HIV P24 AG PANEL Routine 10/03/2022 8:37 AM MANAGER OF WAREHOUSE Screening for HIV without presence of risk factors ENDOSCOPY, COLON, DIAGNOSTIC Routine 01/25/2018 7:01 AM CDT from Last 3 Months or Most Recently Relevant to Health Maintenance Results * XR Lumbar Spine 4Vw or More (01/05/2025 12:16 PM CDT) Anatomical Region Laterality Modality Spine Computed Radiogr aphy 01/05/2025 12:1 9 PM CDT Impressions 01/05/2025 1:32 PM CDT IMPRESSION: Question T11 compression deformity Bony demineralization No acute osseous abnormality Edited by Teresa Powers on 01/05/2025 12:26 PM > Interpreting Provider: Dave Linder MD on 01/05/2025 1:32 PM Narrative 01/05/2025 1:32 PM CDT PROCEDURE: XR LUMBAR SPINE 4VW OR MORE DATE/TIME OF EXAM: 01/05/2025 12:16 PM CLINICAL INFORMATION: None relevant/not provided if blank. Indication: M54.9: Multilevel spine pain Additional History: COMPARISON: None. TECHNIQUE: 6 views FINDINGS: Bony demineralization is present. Mild superior endplate compression deformity of T11 is demonstrated. There is no acute fracture, subluxation or dislocation. Stimulator device is seen overlying the right pelvis with lead extending the left upper pelvis. There are internal stabilization screws seen in the proximal right femur. Surgical clips overlie the right upper quadrant of the abdomen. Procedure Note Dave Linder MD - 01/05/2025 PROCEDURE: XR LUMBAR SPINE 4VW OR MORE DATE/TIME OF EXAM: 01/05/2025 12:16 PM CLINICAL INFORMATION: None relevant/not provided if blank. Indication: M54.9: Multilevel spine pain Additional History: COMPARISON: None. TECHNIQUE: 6 views FINDINGS: Bony demineralization is present. Mild superior endplate compression deformity of T11 is demonstrated. There is no acute fracture,subluxation or dislocation. Stimulator device is seen overlying the right pelviswith lead extending the left upper pelvis. There are internal stabilization screws seen in the proximal right femur. Surgical clips overlie theright upper quadrant of the abdomen. IMPRESSION: Question T11 compression deformity Bony demineralization No acute osseous abnormality Edited by Teresa Powers on 01/05/2025 12:26 PM > Interpreting Provider: Dave Linder MD on 01/05/2025 1:32 PM Leilani Wilson MD DIAGNOSTIC IMAGING ORDERABLES Fi nal Result * XR Thoracic Spine 3Vw (01/05/2025 12:16 PM CDT) Anatomical Region Laterality Modality Spine Computed Radiogr aphy 01/05/2025 12:1 8 PM CDT Impressions 01/05/2025 1:32 PM CDT IMPRESSION: 1. Questionable superior endplate T11 compression deformity. 2. Degenerative changes. 3. Mild scoliosis. Edited by Yoly Trujillo on 01/05/2025 12:27 PM > Interpreting Provider: Dave Linder MD on 01/05/2025 1:32 PM Narrative 01/05/2025 1:32 PM CDT PROCEDURE: XR THORACIC SPINE 3VW DATE/TIME OF EXAM: 01/05/2025 12:16 PM INDICATION: M54.9: Multilevel spine pain. Additional History: COMPARISON: None. FINDINGS: Three views of the thoracic spine show mild endplate degenerative changes. There is a questionable superior endplate T11 compression deformity. Slight left convex lower thoracic scoliosis is present. Procedure Note Dave Linder MD - 01/05/2025 PROCEDURE: XR THORACIC SPINE 3VW DATE/TIME OF EXAM: 01/05/2025 12:16 PM INDICATION: M54.9: Multilevel spine pain. Additional History: COMPARISON: None. FINDINGS: Three views of the thoracic spine show mild endplate degenerativechanges. There is a questionable superior endplate T11 compression deformity.Slight left convex lower thoracic scoliosis is present. IMPRESSION: 1. Questionable superior endplate T11 compression deformity. 2. Degenerative changes. 3. Mild scoliosis. Edited by Yoly Trujillo on 01/05/2025 12:27 PM > Interpreting Provider: Dave Linder MD on 01/05/2025 1:32 PM Leilani Wilson MD DIAGNOSTIC IMAGING ORDERABLES Fi nal Result * XR Cervical Spine 4 or 5Vw (01/05/2025 12:16 PM CDT) Anatomical Region Laterality Modality Spine Computed Radiogr aphy 01/05/2025 12:1 8 PM CDT Impressions 01/05/2025 1:32 PM CDT IMPRESSION: No acute osseous abnormality. Edited by Teresa Powers on 01/05/2025 12:25 PM > Interpreting Provider: Dave Linder MD on 01/05/2025 1:32 PM Narrative 01/05/2025 1:32 PM CDT PROCEDURE: XR CERVICAL SPINE 4 OR 5VW DATE/TIME OF EXAM: 01/05/2025 12:16 PM CLINICAL INFORMATION: None relevant/not provided if blank. Indication: M54.9: Multilevel spine pain Additional History: COMPARISON: None. TECHNIQUE: 5 views. FINDINGS: There is no acute fracture, subluxation or dislocation. A right-sided portacatheter is present. Stimulator or recorder device overlies the heart. Procedure Note Dave Linder MD - 01/05/2025 PROCEDURE: XR CERVICAL SPINE 4 OR 5VW DATE/TIME OF EXAM: 01/05/2025 12:16 PM CLINICAL INFORMATION: None relevant/not provided if blank. Indication: M54.9: Multilevel spine pain Additional History: COMPARISON: None. TECHNIQUE: 5 views. FINDINGS: There is no acute fracture, subluxation or dislocation. A right-sided portacatheter is present. Stimulator or recorder device overlies theheart. IMPRESSION: No acute osseous abnormality. Edited by Teresa Powers on 01/05/2025 12:25 PM > Interpreting Provider: Dave Linder MD on 01/05/2025 1:32 PM Leilani Wilson MD DIAGNOSTIC IMAGING ORDERABLES Fi nal Result * (ABNORMAL) URINE MICROSCOPIC ONLY REFLEX TO CULTURE (01/05/2025 10:50 AM CDT) Only the most recent of2 resultswithin the time period is included. Reflex Status Culture to follow 01/05/2025 11:56 AM CDT [facility] RBC UA 6-10(A) None Seen, 0-2, 3-5 # /hpf 01/05/2025 11:56 AM CDT [facility] WBC UA >100(A) None Seen, 0-5 # /hpf 01/05/2025 11:56 AM CDT [facility] Bacteria UA 1+(A) None Seen 01/05/2025 11:56 AM CDT [facility] Squamous Epithelial Cells None Seen None Seen, 0-2, 3-5 /hpf 01/05/2025 11:56 AM CDT [facility] Mucus UA 1+ /LPF 01/05/2025 11:56 AM CDT [facility] Urine URINE SPECIMEN OBTAINED BY CLEAN CATCH PROCEDURE / Unknown Collection / Unknown 01/05/2025 10:50 AM CDT 01/05/2025 10:56 AM CDT Narrative [facility] - 01/05/2025 11:56 AM CDT us Leilani Wilson MD LAB - URINALYSIS ORDERABLES Yvette l Result [facility] [address] [place], [place] [address] * (ABNORMAL) URINALYSIS REFLEX MICROSCOPIC REFLEX CULTURE (01/05/2025 10:50 AM CDT) Only the most recent of2 resultswithin the time period is included. Color UA Yellow Straw, Yellow 01/05/2025 11:56 AM CDT [facility] Clarity UA Turbid(A) Clear 01/05/2025 11:56 AM CDT [facility] Glucose UA Negative Negative 01/05/2025 11:56 AM CDT [facility] Bilirubin UA Negative Negative 01/05/2025 11:56 AM CDT [facility] Ketone UA Negative Negative 01/05/2025 11:56 AM CDT [facility] Specific [place] UA 1.004(L) 1.005 - 1.030 01/05/2025 11:56 AM CDT [facility] Blood UA 3+(A) Negative 01/05/2025 11:56 AM CDT [facility] pH UA 6.0 5.0 - 8.0 pH 01/05/2025 11:56 AM CDT [facility] Protein UA 2+(A) Negative 01/05/2025 11:56 AM CDT [facility] Urobilinogen UA Negative Negative, >8.0 mg/dL 01/05/2025 11:56 AM CDT [facility] Nitrite UA Negative Negative 01/05/2025 11:56 AM CDT [facility] Leukocyte UA 3+(A) Negative 01/05/2025 11:56 AM CDT [facility] Urine Microscopy Urine microscopy to follow 01/05/2025 11:56 AM CDT [facility] Urine URINE SPECIMEN OBTAINED BY CLEAN CATCH PROCEDURE / Unknown Collection / Unknown 01/05/2025 10:50 AM CDT 01/05/2025 10:56 AM CDT Narrative [facility] - 01/05/2025 11:56 AM CDT Leilani Wilson MD LAB - URINALYSIS ORDERABLES Yvette l Result Performing Organization Address City/[facility]/ZIP Co de Phone Number [facility] [address] [place] [address], [facility] * CULTURE URINE (01/05/2025 10:50 AM CDT) Only the most recent of2 resultswithin the time period is included. Culture Urine <10,000 CFU/mL urogenital meek CLAUDE 01/07/2025 1:[address] [facility] Urine URINE SPECIMEN OBTAINED BY CLEAN CATCH PROCEDURE / Unknown Collection / Unknown 01/05/2025 10:50 AM CDT 01/05/2025 10:56 AM CDT Leilani Wilson MD LAB - MICROBIOLOGY ORDERABLES Fi nal Result Performing Organization Address City/[facility]/ZIP Co de Phone Number [facility] [address] [place] [address], [facility] [phone] * EMG WITH NERVE CONDUCTION STUDY (01/05/2025) Polo Walton DPM NEUROLOGY ORDERABLES Final Result Performing Organization Address City/[facility] Co de Phone Number [facility] RESULT SCAN * CT RENAL STONE (12/14/2024 2:18 PM CDT) Anatomical Region Laterality Modality Abdomen Computed Tomogra phy 12/14/2024 2:41 PM CDT Impressions 12/14/2024 2:44 PM CDT Impression: 1.No obstructing renal stone, hydronephrosis, or hydroureter. 2.Multifocal groundglass opacities and nodular densities in the left lower lobe and lingula suggests an evolving infectious process. Follow-up to resolution is recommended. [facility] > Interpreting Provider: Garrick Paz MD on 12/14/2024 2:44 PM Narrative 12/14/2024 2:44 PM CDT PROCEDURE: CT RENAL STONE, DATE/TIME OF EXAM: 12/14/2024 2:18 PM, LOCATION [facility] INDICATION: R10.9: Flank pain ADDITIONAL CLINICAL INFORMATION: Ordering Provider Reason For Exam: Technologist Note: Additional: COMPARISON: CT abdomen pelvis from 08/22/2024 TECHNIQUE: CT of the abdomen and pelvis was performed without intravenous contrast according to standard protocol. Sagittal and coronal reformats were submitted. Dose reduction techniques were utilized. Findings: Exam limited due to lack of intravenous contrast. Lower Chest: Multifocal groundglass and nodular densities in the left lower lobe and lingula suggests an evolving infectious process. Follow-up to resolution is recommended. Liver: Normal. Gallbladder and Bile Ducts: The gallbladder is absent. Spleen: Normal. Pancreas: Normal. Adrenals: Normal. Kidneys: Normal. Gastrointestinal: Postoperative changes of the stomach and loops of small bowel in the midabdomen. The appendix is not seen; however, no inflammatory changes are seen in the right lower quadrant. Mesentery/Peritoneum/Retroperitoneum: Normal. Bladder: The bladder wall is diffusely thickened, likely due to decompressed state. Reproductive Organs: The uterus is absent Vasculature: No vascular abnormality is present. Bones: Postoperative changes of the right hip are partially imaged. The visible osseous structures are intact. Soft tissues: Normal. Procedure Note Garrick Paz MD - 12/14/2024 PROCEDURE: CT RENAL STONE, DATE/TIME OF EXAM: 12/14/2024 2:18 PM,LOCATION [facility] INDICATION: R10.9: Flank pain ADDITIONAL CLINICAL INFORMATION: Ordering Provider Reason For Exam: Technologist Note: Additional: COMPARISON: CT abdomen pelvis from 08/22/2024 TECHNIQUE: CT of the abdomen and pelvis was performed without intravenous contrast according to standard protocol. Sagittal and coronal reformats were submitted. Dose reduction techniques were utilized. Findings: Exam limited due to lack of intravenous contrast. Lower Chest: Multifocal groundglass and nodular densities in the left lower lobe and lingula suggests an evolving infectious process. Follow-up to resolutionis recommended. Liver: Normal. Gallbladder and Bile Ducts: The gallbladder is absent. Spleen: Normal. Pancreas: Normal. Adrenals: Normal. Kidneys: Normal. Gastrointestinal: Postoperative changes of the stomach and loops of small bowel in the midabdomen. The appendix is not seen; however, no inflammatory changes are seen inthe right lower quadrant. Mesentery/Peritoneum/Retroperitoneum: Normal. Bladder: The bladder wall is diffusely thickened, likely due to decompressedstate. Reproductive Organs: The uterus is absent Vasculature: No vascular abnormality is present. Bones: Postoperative changes of the right hip are partially imaged. The visible osseous structures are intact. Soft tissues: Normal. Impression: 1.No obstructing renal stone, hydronephrosis, or hydroureter. 2.Multifocal groundglass opacities and nodular densities in the leftlower lobe and lingula suggests an evolving infectious process. Follow-up to resolution is recommended. [facility] > Interpreting Provider: Garrick Paz MD on 12/14/2024 2:44 PM Morgan Mike Meza PROCESS LEAD-WIRELINE OPERATOR CT ORDERABLES Final Result * CBC W AUTO DIFFERENTIAL (12/14/2024 2:13 PM CDT) WBC 6.0 4.0 - 10.7 x10E9/L 12/14/2024 2:18 PM CDT [facility] RBC Count 4.00 3.90 - 5.20 x10E12/L 12/14/2024 2:18 PM CDT [facility] Hemoglobin 12.4 11.9 - 15.8 g/dL 12/14/2024 2:18 PM CDT [facility] Hematocrit 37.1 34.8 - 46.1 % 12/14/2024 2:18 PM CDT [facility] MCV 92.8 80.0 - 98.0 fL 12/14/2024 2:18 PM CDT [facility] MCH 31.0 26.7 - 33.6 pg 12/14/2024 2:18 PM CDT [facility] MCHC 33.4 31.7 - 36.3 g/dL 12/14/2024 2:18 PM CDT [facility] RDW-CV 11.6 11.3 - 14.8 % 12/14/2024 2:18 PM CDT [facility] Platelet Count 174 150 - 420 x10E9/L 12/14/2024 2:18 PM CDT [facility] MPV 9.0 7.8 - 11.4 fL 12/14/2024 2:18 PM CDT [facility] Neutrophil % 68.3 41.0 - 74.0 % 12/14/2024 2:18 PM CDT [facility] Lymphocyte % 22.9 17.0 - 47.0 % 12/14/2024 2:18 PM CDT [facility] Monocyte % 7.0 3.0 - 11.0 % 12/14/2024 2:18 PM CDT [facility] Eosinophil % 1.3 0.0 - 7.0 % 12/14/2024 2:18 PM CDT [facility] Basophil % 0.2 0.0 - 1.6 % 12/14/2024 2:18 PM CDT [facility] Immature Granulocytes % 0.3 0.0 - 1.0 % 12/14/2024 2:18 PM CDT [facility] Neutrophil Absolute 4.12 1.60 - 7.50 x10E9/L 12/14/2024 2:18 PM CDT [facility] Lymphocyte Absolute 1.38 1.00 - 4.40 x10E9/L 12/14/2024 2:18 PM CDT [facility] Monocyte Absolute 0.42 0.15 - 1.00 x10E9/L 12/14/2024 2:18 PM CDT [facility] Eosinophil Absolute 0.08 0.00 - 0.60 x10E9/L 12/14/2024 2:18 PM CDT [facility] Basophil Absolute 0.01 0.00 - 0.13 x10E9/L 12/14/2024 2:18 PM CDT [facility] Blood BLOOD SPECIMEN / Unknown Venipuncture / Unknown 12/14/2024 2:13 PM CDT 12/14/2024 2:16 PM CDT us Morgan Meza PROCESS LEAD-WIRELINE OPERATOR LAB - HEMATOLOGY ORDER KAI Final Result Performing Organization Address [facility] Co de Phone Number [facility] [address] * (ABNORMAL) COMPREHENSIVE METABOLIC PANEL (12/14/2024 2:13 PM CDT) [facility] Glucose 93 70 - 125 mg/dL 12/14/2024 2:36 PM CDT [facility] Sodium 138 136 - 145 mmol/L 12/14/2024 2:36 PM CDT [facility] Potassium 3.7 3.4 - 5.1 mmol/L 12/14/2024 2:36 PM CDT [facility] Chloride 109(H) 98 - 107 mmol/L 12/14/2024 2:36 PM CDT [facility] CO2 20(L) 22 - 29 mmol/L 12/14/2024 2:36 PM T [facility] Calcium 9.14 8.4 - 10.2 mg/dL 12/14/2024 2:36 PM [facility] Anion Gap 9 6 - 16 mmol/L 12/14/2024 2:36 PM T [facility] BUN 13.3 9.8 - 20.1 mg/dL 12/14/2024 2:36 PM T [facility] Creatinine 0.80 0.57 - 1.11 mg/dL 12/14/2024 2:36 PM [facility] Alkaline Phosphatase 159(H) 40 - 150 U/L 12/14/2024 2:36 PM T [facility] ALT 21 <=55 U/L 12/14/2024 2:36 PM [facility] AST 15 5 - 34 U/L 12/14/2024 2:36 PM [facility] Protein Total 6.5 6.4 - 8.3 gm/dL 12/14/2024 2:36 PM [facility] Albumin 3.4 3.4 - 4.8 gm/dL 12/14/2024 2:36 PM [facility] Globulin Total 3.1 2.6 - 4.0 gm/dL 12/14/2024 2:36 PM [facility] Albumin/Globulin Ratio 1.1 0.9 - 1.6 12/14/2024 2:36 PM [facility] Bilirubin Total 0.4 0.2 - 1.2 mg/dL 12/14/2024 2:36 PM [facility] eGFR 90(L) >90 mL/min/1.7 3m2 12/14/2024 2:36 PM [facility] Comment:The GFR result was c alculated using the updated CKD-EPI Creatinine Equation (2020). Blood BLOOD SPECIMEN / Unknown Venipuncture / Unknown 12/14/2024 2:13 PM CDT 12/14/2024 2:16 PM T us Morgan Meza PROCESS LEAD-WIRELINE OPERATOR LAB - CHEMISTRY ORDERA BLES Final Result Performing Organization Address City/State/[facility] Co de Phone Number [facility] [address] [place], [place] [id number] [place] [address] * LIPASE BLOOD (12/14/2024 2:13 PM CDT) Lipase 24 8 - 78 U/L 12/14/2024 2:36 PM CDT [facility] Blood BLOOD SPECIMEN / Unknown Venipuncture / Unknown 12/14/2024 2:13 PM CDT 12/14/2024 2:16 PM CDT us Morgan Meza PROCESS LEAD-WIRELINE OPERATOR LAB - CHEMISTRY ORDERA BLES Final Result [facility] [address] * XR Hip Right 2Vw or More (12/02/2024 10:23 AM CDT) Anatomical Region Laterality Modality Pelvis, Lower Extremity Computed Radiography 12/02/2024 10:2 8 AM CDT Impressions 12/02/2024 10:28 AM CDT IMPRESSION: Internally stabilized proximal right femur. > Interpreting Provider: Dave Linder MD on 12/02/2024 10:28 AM Narrative 12/02/2024 10:28 AM CDT PROCEDURE: XR HIP RIGHT 2VW OR MORE DATE/TIME OF EXAM: 12/02/2024 10:23 AM CLINICAL INFORMATION: None relevant/not provided if blank. Indication: Z02.71: Encounter for disability determination Additional History: Right hip pain COMPARISON: 05/19/2024 FINDINGS: 2 views of the right hip show internal stabilization with intramedullary chula and screws. No fracture is present. Procedure Note Dave Linder MD - 12/02/2024 PROCEDURE: XR HIP RIGHT 2VW OR MORE DATE/TIME OF EXAM: 12/02/2024 10:23 AM CLINICAL INFORMATION: None relevant/not provided if blank. Indication: Z02.71: Encounter for disability determination Additional History: Right hip pain COMPARISON: 05/19/2024 FINDINGS: 2 views of the right hip show internal stabilization with intramedullary chula and screws. No fracture is present. IMPRESSION: Internally stabilized proximal right femur. > Interpreting Provider: Dave Linder MD on 12/02/2024 10:28 AM Babatunde Tyler MD DIAGNOSTIC IMAGING ORDE BELÉN Final Result * (ABNORMAL) CREATININE URINE TIMED (11/20/2024 2:43 PM CDT) Volume 24 Hour Urine 1,500 600 - 1,600 mL 11/20/2024 4:06 PM CDT [facility] Collection Time Hours 24 hrs 11/20/2024 4:06 PM CDT [facility] Creatinine Urine 49.9 mg/dL 11/20/2024 4:06 PM CDT [facility] Creatinine 24 Hour Urine 749(L) 1,000 - 2,000 mg/24hr 11/20/2024 4:06 PM CDT [facility] Urine TIMED URINE SPECIMEN / Unknown Timed Urine Volume Measurement / Unknown 11/20/2024 2:43 PM CDT 11/20/2024 3:50 PM CDT Jaylen Mims MD LAB - URINE CHEMISTRY ORDERABL ES Final Result Performing Organization Address [facility]/State/[facility] Co de Phone Number [facility] [address] * CALCIUM URINE TIMED (11/20/2024 2:43 PM CDT) Collection Time Hours 24 hr 11/23/2024 11:05 AM T [employer] ([facility]) Comment: Per 24h calculations are provided to aid interpretation for collections with a duration of 24 hours and an average daily urine volume. For specimens with notable deviations in collection time or volume, ratios of analytes to a corresponding urine creatinine concentration may assist in result interpretation. Volume 24 Hour Urine 1500 mL 11/23/2024 11:05 AM CDT [facility] ([facility]) Calcium Urine 7.1 mg/dL 11/23/2024 11:05 AM T [facility] ([facility]) Calcium 24 Hour Urine 106 100 - 250 mg/d 11/23/2024 11:05 AM T [employer] ([facility]) Comment: INTERPRETIVE INFORMATION: CALCIUM, URINE - mg/day Calcium-free diet: 5-40 mg/d Low calcium diet (800 mg/d or less): 50-150 mg/d Average calcium diet (about 800 mg/d): 100-250 mg/d High calcium diet (800 mg/d or greater): greater than 250 mg/d Creatinine Urine 55 mg/dL 11/24/19 11:05 AM CDT [facility]) Creatinine 24 Hour Urine 825 700 - 1600 mg/d 11/23/2024 11:05 AM CDT [facility]) Calcium/Creatinine Ratio Urine 129 20 - 300 mg/g 11/23/2024 11:05 AM T [facility]) Comment: REFERENCE INTERVAL: Calcium/Creatinine Ratio, Urine Access complete set of age- and/or gender-specific reference intervals for this test in the [facility] Laboratory Test Directory ([employer] Performed By: [facility] [email or web address] [address] [place] [address] Bearing Grinder: Adrian Irizarry MD, PhD CLIA Number: [id number] Urine TIMED URINE SPECIMEN / Unknown Timed Urine Volume Measurement / Unknown 11/20/2024 2:43 PM CDT 11/20/2024 3:50 PM CDT Jaylen Mims MD LAB - URINE CHEMISTRY ORDERABL ES Final Result [facility]) [address] [place] [address] * SARS-COV-2 (COVID-19) FLU A/B RSV PCR RAPID (11/14/2024 2:27 PM CDT) COVID-19 PCR Not detected Not detected, Invalid 11/14/2024 3:10 PM CDT [facility] Influenza A PCR Not detected Not detected 11/14/2024 3:10 PM CDT [facility] Influenza B PCR Not detected Not detected 11/14/2024 3:10 PM CDT [facility] RSV PCR Not detected Not detected 11/14/2024 3:10 PM CDT [facility] Microbiology SPECIMEN FROM NASOPHARYNGEAL STRUCTURE / Unknown Collection / Unknown 11/14/2024 2:27 PM CDT 11/14/2024 2:32 PM CDT Narrative [facility] - 11/14/2024 3:10 PM CDT The Cepheid Xpert Xpress SARS-COV-2 has been authorized by the Food and Drug administration (FDA) under an Emergency Use Authorization (EUA). This test has been validated in accordance with the FDA's guidance document Policy for Diagnostic Testing in Laboratories Certified to perform High Complexity Testing under CLIA prior to Emergency Use Authorization for Coronavirus Disease-2019 during the Public Health Emergency issued on November 01, 2019. FDA independent review of this validation is pending. This test is only authorized for the duration of time the declaration that circumstances exist justifying the authorization of emergency use of in vitro diagnostic tests for detection of SARS-COV-2 virus and/or diagnosis of COVID-19 infection under 564(b)(1)of the Act, 21 U.S.C. 360bbb-3 (b) (1), unless the authorization is terminated or revoked sooner. Leonarda Petersen [facility] LAB - MICROBIOLOGY ORDBarrington MELISSA Final Result Performing Organization Address City/[facility] Co de Phone Number [facility] [address] [place] [address] * STREP A SCREEN DIRECT W RFLX STREP A CULTURE (11/14/2024 2:27 PM CDT) Pathologist [facility] Strep A Rapid Negative Negative 11/14/2024 2:39 PM CDT [facility] Microbiology ENTIRE THROAT (SURFACE REGION OF NECK) / Unknown Collection / Unknown 11/14/2024 2:27 PM CDT 11/14/2024 2:32 PM CDT Narrative [facility] - 11/14/2024 2:39 PM CDT Test has reflexed to a Strep A culture. Leonarda Petersen [facility] - MICROBIOLOGY ORD RABMIKE Final Result Performing Organization Address City/[facility] Co de Phone Number [facility] [address] [place] [address] * CULTURE STREP GROUP A (11/14/2024 2:27 PM CDT) Culture Negative for beta-hemolytic Streptococcus Group A CLAUDE 11/16/2024 12:[address] [facility] MICROBIOLOGY Microbiology ENTIRE THROAT (SURFACE REGION OF NECK) / Unknown Collection / Unknown 11/14/2024 2:27 PM CDT 11/14/2024 2:32 PM CDT Leonarda Petersen PROCESS LEAD-WIRELINE OPERATOR LAB - MICROBIOLOGY ORDE BELÉN Final Result [facility] MICROBIOLOGY [address] [place] [address], [facility] [phone] * XR FOOT BILAT WT [place] 3 VW [address]328 X 2 (11/11/2024 12:55 PM CDT) Anatomical Region Laterality Modality Ankle / Foot, Lower Extremity Co mputed Radiography 11/11/2024 5:52 PM CDT Narrative 11/11/2024 5:52 PM CDT PROCEDURE: XR FOOT BILAT WT BE[place] 3VW DATE/TIME OF EXAM: 11/11/2024 12:55 PM CLINICAL INFORMATION: None relevant/not provided if blank. Indication: M79.671: Pain in both feet M79.672: Pain in both feet Additional History: FINDINGS: No fracture or malalignment seen in either foot. Joint spaces are preserved and no erosions seen. > Interpreting Provider: Polo Gil MD on 11/11/2024 5:52 PM Procedure Note Polo Gil MD - 11/11/2024 PROCEDURE: XR FOOT BILAT WT [place] 3VW DATE/TIME OF EXAM: 11/11/2024 12:55 PM CLINICAL INFORMATION: None relevant/not provided if blank. Indication: M79.671: Pain in both feet M79.672: Pain in both feet Additional History: FINDINGS: No fracture or malalignment seen in either foot. Joint spaces arepreserved and no erosions seen. > Interpreting Provider: Polo Gil MD on 11/11/2024 5:52 PM us Polo Walton DPM DIAGNOSTIC IMAGING ORDERAB LES Final Result * PTH INTACT (11/11/2024 12:24 PM CDT) PTH Intact 56.5 15.0 - 103.0 pg/mL 11/12/2024 9:57 AM CDT [facility] Blood BLOOD SPECIMEN / Unknown Lab Venipuncture / Unknown 11/11/2024 12:24 PM CDT 11/11/2024 1:53 PM CDT Jaylen Mims MD LAB - CHEMISTRY ORDERABLES Fin al Result [facility] [address] [place], [place] [id number] [place] [address] * (ABNORMAL) LIPID PROFILE (09/04/2024 11:59 AM MANAGER OF WAREHOUSE) Pathologist [facility] Cholesterol 278(H) <200 mg/dL 09/04/2024 12:29 PM [facility] Triglycerides 286(H) <150 mg/dL 09/04/2024 12:29 PM [facility] HDL Cholesterol 54 >40 mg/dL 12:29 PM [facility] Chol HDL Ratio 5.1 1.0 - 6.0 09/04/2024 12:29 PM [facility] LDL Calculated 167(H) 65 - 130 mg/dL 09/04/2024 12:29 PM [facility] VLDL Calculated 57(H) <=30 mg/dL 12:29 PM [facility] Blood BLOOD SPECIMEN / Unknown Lab Venipuncture / Unknown 09/04/2024 11:59 AM MANAGER OF WAREHOUSE 09/04/2024 12:08 PM MANAGER OF WAREHOUSE Narrative [facility] - 09/04/2024 12:29 PM [facility] Lipid Profile Comment: CHOLESTEROL LEVEL..................CLINICAL INTERPRETATION LESS THAN 200 MG/DL..............................DESIRABLE 200-239 MG/DL..............................BORDERLINE HIGH GREATER THAN 240 MG/DL................................HIGH LDL-CHOLESTEROL LEVEL..............CLINICAL INTERPRETATION LESS THAN 100 MG/DL................................OPTIMAL 100-129 MG/DL.................................NEAR OPTIMAL GREATER THAN 160 MG/DL...........................HIGH RISK HDL RISK LEVEL GREATER THEN 60 MG/DL............................DECREASED 40-60 MG/DL........................................AVERAGE LESS THAN 40 MG/DL...............................INCREASED TRIGLYCERIDE LEVEL..................CLINICAL INTERPRETATION LESS THAN 150 MG/DL...............................DESIRABLE 150-199 MG/DL...............................BORDERLINE HIGH 200-499 MG/DL..........................................HIGH GREATER THAN 500..................................VERY HIGH THE NATIONAL CHOLESTEROL EDUCATION PROGRAM HAS SET THE ABOVE GUIDELINES (REFERANCE VALUES) FOR CHOLESTEROL AND HDL. RISK ASSOCIATED WITH CHOLESTEROL/HDL RATIOS RISK....................MALE RATIO.............FEMALE RATIO 1/2 AVERAGE.................<3.4.......................<3.3 LOW RISK.................... 4.0 ...................... 3.8 AVERAGE..................... 5.0 ...................... 4.5 2X AVERAGE.................. 9.5 ...................... 7.0 3X AVERAGE...................>23........................>11 us Leilani Wilson MD LAB - CHEMISTRY ORDERABLES Final Result [facility] [address] * Mammo Bilat Screening W Vinicio (06/18/2024 10:22 AM CDT) Anatomical Region Laterality Modality Breast Bilateral Mammography 06/18/2024 10:1 0 AM CDT Impressions 06/18/2024 4:21 PM CDT IMPRESSION: 1. Questioned architectural distortion in the central lower left breast 2. No suspicious finding the right breast 3. Soft tissue density involving the bilateral pectoralis muscles with dysgenesis calcifications that appears similar in shape and size dating back to [address] and is favored to represent scarring/not related to breast malignancy. RECOMMENDATION: Diagnostic left mammogram. If indicated at that time, left breast ultrasound will be performed. Patient will be contacted and scheduled to return for the additional imaging. OVERALL ASSESSMENT: BI-RADS CATEGORY 0: INCOMPLETE: NEED ADDITIONAL IMAGING EVALUATION. Report drafted by Harrison Polk MD (residential leasing agent). Oscar May MD (residential leasing agent) and Felicitas ADAIR MIRELLA (breast imaging fellow) also assisted in the interpretation of this study. I, Kaylin Roblero MD have personally reviewed and interpreted this examination/study. > Interpreting Provider: Kaylin Roblero MD on 06/18/2024 4:21 PM Narrative 06/18/2024 4:21 PM CDT EXAMINATIONS: BILATERAL DIGITAL SCREENING MAMMOGRAM AND BILATERAL BREAST TOMOSYNTHESIS LOCATION: [facility] EXAM DATE: 06/18/2024 HISTORY: Screening. History of benign left breast biopsy. History of bilateral reduction mammoplasty in 2019. Family history of breast cancer in maternal grandmother at the age of 45. Patient reports recent placement of cardiac loop recorder. RISK ASSESSMENT CALCULATION: Patient completed a breast cancer risk assessment during her appointment 06/18/2024. Based upon the information she provided and her mammographic breast density, her lifetime risk of developing breast cancer is 13 % (Average Risk <15%; Intermediate / Moderate Risk 15-19; High Risk > 20%). Risk assessment based upon the Tyrer-Cuzick v8 model. By the NCCN guidelines and family history of breast cancer, consideration of genetic testing is recommended. COMPARISON: Comparison is made to prior mammograms back to 2015. CT angiography chest 06/07/2024, 07/10/2022. CT abdomen/pelvis 07/20/2019. CT abdomen pelvis from 2020. TECHNIQUE: Per technologist, patient is nonweightbearing on the right and all images are acquired in the wheelchair. Tomosynthesis (3D) and reconstructed synthetic 2-D images acquired and reviewed in the bilateral craniocaudal and mediolateral oblique projections. A total of 5 images obtained. Transpara AI was utilized in the interpretation. BREAST PARENCHYMAL COMPOSITION: Category B: There are scattered areas of fibroglandular density. FINDINGS: Soft tissue density involving the bilateral pectoralis muscle with dystrophic calcifications.. This correlates to similar findings seen on prior CTs dating back to 2019, most recent dated 12/16/2023. Given the stability dating back to [address], and the formation of dystrophic calcifications and bilateral findings this is most consistent with scarring/not related to breast malignancy. There are changes of bilateral reduction mammoplasty. Right breast: No suspicious findings or evidence of malignancy on mammography. Left breast: In the central lower breast at mid depth there is question architectural distortion which may be due to the patient's breast reduction. This is best seen on the left exaggerated craniocaudal lateral view image 24 of 84 approximately 4 cm from the nipple. The correlate on the MLO view is best seen on image 27 of 85 however it is less distinct. This is in the region that previously had a scar marker on the mediolateral oblique and is more prominent today. Leilani Wilson MD MAMMO ORDERABLES Final Result * HIV-1 HIV-2 ANTIBODY + HIV P24 AG PANEL (10/03/2022 8:37 AM MANAGER OF WAREHOUSE) [facility] HIV1/2 Ab + P24 Ag NON-REACTI VE/NEGATIV E NON-REACTI VE/NEGATIV E 10/03/2022 10:02 AM MANAGER OF WAREHOUSE [facility] Blood BLOOD SPECIMEN / Unknown Lab Venipuncture / Unknown 10/03/2022 8:37 AM MANAGER OF WAREHOUSE 10/03/2022 9:14 AM MANAGER OF WAREHOUSE Lucie Gibson MD LAB - CHEMISTRY ORDERABLES Final Result Performing Organization Address [facility]/State/[facility] Co de Phone Number [facility] [address] * HEPATITIS C ANTIBODY (10/03/2022 8:37 AM MANAGER OF WAREHOUSE) Pathologist [facility] Interpretation Hepatitis C Antibody RAGHU Negative Negative 10/04/2022 6:58 PM MANAGER OF WAREHOUSE [facility] ([facility]) Comment: INTERPRETIVE INFORMATION: Hepatitis C Virus Antibody by RAGHU Index: 0.79 IV or less .................. Negative 0.80 to 0.99 IV .................. Equivocal 1.00 to 10.99 IV ................. Low Positive 11.00 IV or greater .............. High Positive Index Value (IV) = Anti-HCV signal to cutoff (S/C)ratio This assay should not be used for blood donor screening, associated re-entry protocols, or for screening Human Cells, Tissues and Cellular and Tissue-Based Products (HCT/P). Interpretation Hepatitis C Antibody Index 0.04 IV 10/04/2022 6:58 PM MANAGER OF WAREHOUSE [employer] ([facility]) Comment: Performed by [email or web address], [address] [place] [address] [email or web address] [email or web address]), Adrian Irizarry MD, PHD, Lab. Director Blood BLOOD SPECIMEN / Unknown Lab Venipuncture / Unknown 10/03/2022 8:37 AM MANAGER OF WAREHOUSE 10/03/2022 9:14 AM MANAGER OF WAREHOUSE us Lucie Gibson MD LAB - CHEMISTRY ORDERABLES Final Result [employer] ([facility]) [address] * ENDOSCOPY, COLON, DIAGNOSTIC (01/25/2018 7:01 AM CDT) Report Endoscopy POC _ Patient Name: Jenna Chong Procedure Date: 01/25/2018 7:01 AM Date of : 1975 Admit Type: Outpatient Age: 42 Gender: Female Attending MD: Milton Lovelace MD _ Procedure: Upper GI endoscopy Indications: Iron deficiency anemia; bloating; weight loss. Providers: Milton Lovelace MD (Doctor), Mitzy Couch RN, Destiney Anna, Knowledge Manager Referring MD: Belkys Weinberg PROCESS LEAD-WIRELINE OPERATOR, INKER (Referring MD) Medicines: Monitored Anesthesia Care Complications: No immediate complications. _ Procedure: After obtaining informed consent, the endoscope was passed under direct vision. Throughout the procedure, the patient's blood pressure, pulse, and oxygen saturations were monitored continuously. The Colonoscope was introduced through the mouth, and advanced to the jejunum. The upper GI endoscopy was accomplished with ease. The patient tolerated the procedure well. Impression: - Normal esophagus. - Normal examined jejunum. - Non-bleeding gastric ulcer with stricture-dilate d. Post-surgical stomach. - No specimens collected. Colonoscopy to follow. Findings: The examined esophagus was normal. SC Junction at 35 cm. No esophagitis, stricture, mass or Salmon's. The examined small bowel was normal. Patient had a 5 cm gastric remnant. The anastomosis was narrowed and had a one cm round and white based ulcer. One non-bleeding gastric ulcer was found at the anastomosis. The lesion was 10 mm in largest dimension. No active bleed or stigmata. The narrowing was dilated with a 20 mm TTS balloon in one station for one minute. _ Recommendation: - Discharge patient to home. Procedure Code(s): --- Professional --- 21375, Esophagogastrodu odenoscopy, flexible, transoral; diagnostic, including collection of specimen(s) by brushing or washing, when performed (separate procedure) --- Technical --- 14020, Esophagogastrodu odenoscopy, flexible, transoral; diagnostic, including collection of specimen(s) by brushing or washing, when performed (separate procedure) Diagnosis Code(s): --- Professional --- K25.9, Gastric ulcer, unspecified as acute or chronic, without hemorrhage or perforation D50.9, Iron deficiency anemia, unspecified --- Technical --- K25.9, Gastric ulcer, unspecified as acute or chronic, without hemorrhage or perforation D50.9, Iron deficiency anemia, unspecified CPT copyright 2015 [employer]. All rights reserved. The codes documented in this report are preliminary and upon remote inpatient coder review may be revised to meet current compliance requirements. Attending Participation: I personally performed the entire procedure. Milton Lovelace MD 01/25/2018 8:07:59 AM Number of Addenda: 0 Note Initiated On: 01/25/2018 7:01 AM [facility] 01/25/2018 7:01 AM CDT Milton Lovelace MD GI PROCEDURE ORDERABLES Naun turner Result - Final [facility] from Last 3 Months or Most Recently Relevant to Health Maintenance Insurance [employer] ANTHEM * Guarantor: E-SCREEN,SOIL Account Type Relation to Patient Date of Phone Billing Address Company Employer ATTN JEFFERY SMITH [address] Advance Directives * Full Code (Latest Code Status on File) Date Activated Date Inactivated Comments 05/25/2024 5:31 PM 06/05/2024 5:28 PM * Full Code Date Activated Date Inactivated Comments 05/25/2024 5:28 PM 05/25/2024 5:31 PM * Full Code Date Activated Date Inactivated Comments 05/19/2024 9:18 PM 05/25/2024 4:00 PM * Full Code Date Activated Date Inactivated Comments 05/19/2024 8:03 AM 05/19/2024 9:18 PM * Full Code Date Activated Date Inactivated Comments 05/09/2024 3:29 PM 05/12/2024 7:24 PM Care Teams Rrts Relationship Specialty Start Date End Date Leilani Wilson MD [address] [place] [address] PCP - General Internal Medicine 07/12/22 Lyle Reese MD [facility] [address] [place], [place] [address] Cardiology 08/29/22 Josep Bernal MD [address] [place] [address] Physician Dermatology 01/31/23
--- OUTSIDE RECORDS SUMMARY | 2025-01-22 13:09 | XMS_ITS | Clinical Summary ---
Author Organization [facility] Address [address] [place] [address] Phone Care Team Providers Care Hitcher Name Role Phone Belkys Weinberg APRN, EXPANDER MACHINE OPERATOR Primary Care Provider + Allergies Active Allergy Reactions Criticality Noted Date Comments Abaloparatide Nausea,Other (see Comments),Palpitations 07/29/2024 Gabapentin Other (see Comments) 08/11/2024 Face numbness Medications zonisamide (ZONEGRAN) 100 MG Capsule Take 300 mg by mouth daily. Active NEEDLE, DISP, 25 G 25G X 1-1/2 Misc To use for b12 injection every 14 days. 10 Each 6 0 Active ondansetron (ZOFRAN) 8 MG Tablet TAKE 1 TABLET BY MOUTH EVERY 8 HOURS FOR 2 DAYS 1 Active acetaminophen (TYLENOL) 500 MG Tablet Take 1,000 mg by mouth. Active Dexlansoprazole (DEXILANT PO) TAKE ONE CAPSULE DAILY 1 Active hyoscyamine (ANASPAZ, LEVSIN) 0.125 MG Tablet TAKE 1 TABLET BY MOUTH FOUR TIMES DAILY 1 Active Tirosint 25 MCG Capsule 75 mcg. 1 Active Colchicine 0.6 MG Capsule Take 0.6 mg by mouth. 3 Active DULoxetine (CYMBALTA) [address] Particles Take 30 mg by mouth. 3 Active cyanocobalamin (VITAMIN B-12) 1000 MCG/ML SolutionIndicat ions:Vitamin B12 deficiency 1 mL by Subcutaneous route daily. Give B 12 injection SQ daily x 7 days, then give 1 B 12 injection SQ q other week x 6 months 20 mL 4 Active Syringe/Needle, Disp, (SYRINGE 3CC/25GX5/8 ) 25G X 5 3 ML MiscIndications :Vitamin B12 deficiency 3 mL by Does not apply route as needed for Other (B 12 injectinsa). 40 Each 4 Active apixaban (ELIQUIS) 2.5 MG Tablet Take 2.5 mg by mouth 2 times daily. 4 Active oxyCODONE-aceta minophen (PERCOCET) 7.5-325 MG Tablet Take 1-2 Tablets by mouth every 4 hours as needed for Moderate or more severe pain. 4 Active amitriptyline (ELAVIL) 75 MG Tablet Take 1 Tablet by mouth daily. 90 Tablet 4 Active Additional Information Patient not taking.Reported on 10/06/2024 Milnacipran HCl (SAVELLA PO) Take by mouth. Ac tive clonazePAM (KlonoPIN) 2 MG TabletIndicatio ns:Anxiety Take 1 Tablet by mouth 3 times daily as needed for Anxiety. Indications: Feeling Anxious 90 Tablet 3 5 Active hydrOXYzine (ATARAX) 25 MG Tablet Take 1 Tablet by mouth 3 times daily as needed for Anxiety. 90 Tablet 3 5 Active Active Problems Problem Noted Date Diagnosed Date Moderate episode of recurrent major depressive d isorder 06/16/2024 Persistent insomnia 06/16/2024 Decreased vision in both eyes 09/21/2020 Overview (12/02/2020): Hospital F/U for decreased vision, eye pain [...] she got a new prescription from her qa consultant. Began having dull pain at the back of both eyes in late Aug. Saw her qa consultant (Dr. Ajay Desir in [place]) again, who performed testing and referred her [...] well History of Andie-en-Y gastric bypass 11/14/2019 Chronic fatigue 10/24/2019 Migraines 07/01/2018 Overview (12/02/2020): Last Assessment & Plan: Interestingly, her abdominal complaints seem to improve after better control of migraine. I suspect this is visceral hypersensitivity. Last Assessment & Plan: Interestingly, her abdominal complaints seem to improve after better control of migraine. I suspect this is visceral hypersensitivity. Constipation due to outlet dysfunction 8 Overview (12/02/2020): Last Assessment & Plan: I believe she also may have a problem with colonic inertia. Her colonoscopy had a long tortuous colon performed by Dr. Lovelace. I am recommending a trial of Amitiza 24 mcg b.i.d. With food. I wonder that it may contribute to nausea or headache. I would like her to wean down the large number of magnesium pills she is taking as she is taking up to a 18 of the 500 mg magnesium tabs. We know also she has pelvic floor dysfunction and dyssynergy. She did not benefit from physical therapy in [place]. I would like her to see a [facility] motility/neuro gastroenterology unit. Last Assessment & Plan: Will give her a trial of Trulance once daily. She has let me know the result. She seems more constipation predominant. She had tried Linzess in the past without success. Last Assessment & Plan: I believe she also may have a problem with colonic inertia. Her colonoscopy had a long tortuous colon performed by Dr. Lovelace. I am recommending a trial of Amitiza 24 mcg b.i.d. With food. I wonder that it may contribute to nausea or headache. I would like her to wean down the large number of magnesium pills she is taking as she is taking up to a 18 of the 500 mg magnesium tabs. We know also she has pelvic floor dysfunction and dyssynergy. She did not benefit from physical therapy in [place]. I would like her to see a [facility] motility/neuro gastroenterology unit. Folate deficiency 04/04/2018 Conversion disorder 04/04/2018 Severe protein-calorie malnutrition 02/25/2018 Overview (12/02/2020): Last Assessment & Plan: Will try to improve this now that she is on meclizine. She will call dr. Powers if she decides she wants jejunal feeding tube. She will activate CoreTrace so she can communicate with Dr. French, her private GI doc [place] to discharge Esophageal dysphagia 02/12/2018 Overview (12/02/2020): Last Assessment & Plan: Multiple scopes and never inflammation or stricture. 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 Last Assessment & Plan: Improved after dilation. She also maintains on Dexilant as well as Carafate. She can wean down the Carafate at this time due to her constipation Alternating constipation and diarrhea 02/12/2018 Overview (12/02/2020): Last Assessment & Plan: Will give her a trial of Trulance once daily. She has let me know the result. She seems more constipation predominant. She had tried Linzess in the past without success. Iron deficiency anemia 04/20/2017 Vitamin B12 deficiency 04/20/2017 H/O gastric bypass 04/20/2017 Leukocytosis 11/15/2011 Anxiety disorder 11/15/2011 Immunizations Immunization Administration Dates Next Due Influenza Vaccine, MDCK,quadrivalent, pres free 06/14/2020 Influenza, Injectable, Quadrivalent 06/27/2019 MMR Vaccine 06/27/2019 Tetanus Toxoid, Unspecified Formulation 11/02/19 13 Family History Medical History Relation Name Comments No Known Problems Brother Heart Attack Father Huey Hypertension Father Huey Stroke Father Huey Diabetes Mother Gisele Hypertension Mother Gisele Leukemia/Lymphoma Paternal Grandfather Congestive Heart Failure Paternal Grandmother Gisele Cancer Paternal Uncle Yrn No Known Problems Sister Relation Name Status Comments Brother Alive Father Huey Mother Gisele Alive Paternal Grandfather Paternal Grandmother Gisele Paternal Uncle Yrn Sister Alive Social History Tobacco Use Types Packs/Day Years Used Date Smoking Tobacco: Never Smokeless Tobacco: Never Tobacco Cessation:Counseling Given: Not Answered Comments:Never used Alcohol Use Standard Drinks/Week Comments Never 0 (1 standard drink = 0.6 oz pur e alcohol) [facility] Utilities Answer Date Recorded In the past 12 months has e electric, gas, oil, or water company threatened to shut off services in your home? No 10/04/2024 Social Connection and Isolation Panel [NHANES] A nswer Date Recorded In a typical week, how many times do you talk on the phone with family, friends, or neighbors? Once a week 10/04/2024 How often do you get together with friends or re latives? Never 10/04/2024 How often do you attend pentecostal or anglican serv ices? Never 10/04/2024 Do you belong to any clubs o r organizations such as pentecostal groups, unions, fraternal or athletic groups, or school groups? No 10/04/2024 How often do you attend meet ings of the clubs or organizations you belong to? Never 10/04/2024 Are you , , di vorced, , never , or living with a partner? 10/04/2024 AUDIT-C Answer Date Recorded Q1: How often do you have a drink containing alcohol? Never 10/04/2024 Q2: How many drinks containi ng alcohol do you have on a typical day when you are drinking? Patient does not drink Q3: How often do you have si x or more drinks on one occasion? Never 10/04/2024 Overall Financial Resource Strain (CARDIA) Answe r Date Recorded How hard is it for you to pa y for the very basics like food, housing, medical care, and heating? Somewhat hard 10/04/2024 PHQ-2 Answer Date Recorded Total Score - Questions 1-9 26 06/03 [facility] - Occupational Stress Questionnaire Answer Date Recorded Do you feel stress - tense, restless, nervous, or anxious, or unable to sleep at night because your mind is troubled all the time - these days? Rather much 10/04/2024 Exercise Vital Sign Answer Date Recorde d On average, how many days pe r week do you engage in moderate to strenuous exercise (like a brisk walk)? 1 day 10/04/2024 On average, how many minutes do you engage in exercise at this level? 40 min 10/04/2024 Hunger Vital Sign Answer Date Recorded Within the past 12 months, y ou worried that your food would run out before you got the money to buy more. Never true 10/04/19 25 Within the past 12 months, t he food you bought just didn't last and you didn't have money to get more. Never true 10/04/2024 PRAPARE - Transportation Answer Date Re corded In the past 12 months, has l ack of transportation kept you from medical appointments or from getting medications? No 09/2024 In the past 12 months, has l ack of transportation kept you from meetings, work, or from getting things needed for daily living? No 10/04/2024 Housing Stability Vital Sign Answer Chavo e Recorded In the last 12 months, was t here a time when you were not able to pay the mortgage or rent on time? No 10/04/2024 In the past 12 months, how m any times have you moved where you were living? 0 10/04/2024 At any time in the past 12 m [facility], were you homeless or living in a jail (including now)? No 10/04/2024 Sexually Active Control Partners Comments Not Currently Diaphragm, Injection, Post-menopausal, S urgical Male Comments Unknown Sex and Gender Information Value Date Recorded Sex Assigned at Female 06/10/2024 9:36 AM CDT Legal Sex Female 9:30 AM CDT Gender Identity Female 03/18/2024 12:07 AM CDT Sexual Orientation Straight 06/10/2024 9: 36 AM CDT Occupation Industry Job Start Date Job End Date Not on file Not on file Not on file Not on file Last Filed Vital Signs Vital Sign Reading Time Taken Comments Blood Pressure 129/83 10/06/2024 3:44 PM OFFICE BOOKKEEPER Pulse 101 10/06/2024 3:44 PM OFFICE BOOKKEEPER Temperature 36.6 C (97.8 F) 04/09/2024 11:39 AM CDT Respiratory Rate 20 10/06/2024 3:44 PM OFFICE BOOKKEEPER Oxygen Saturation 100% 10/06/2024 3:44 PM OFFICE BOOKKEEPER Inhaled Oxygen Concentration - - Weight 93 kg (205 lb) 10/06/2024 3:44 PM OFFICE BOOKKEEPER Height 170.2 cm (5' 7 ) 10/06/2024 3:44 PM OFFICE BOOKKEEPER Body Mass Index 32.11 10/06/2024 3:44 PM OFFICE BOOKKEEPER Plan of Treatment Health Maintenance Due Date Last Done Comments SARS-COV-2 Immunization ( season) 2024 07/28/2022, 09/14/2021, 08/23/2021, Additional history exists Cologuard 2024 Immunochemical Fecal Occult Blood 2024 Pneumococcal Immunization (50+ years) (1 of 1 - PCV) 2024 Zoster Immunization (1 of 2) 2024 Hepatitis B Immunization (3 of 3 - 19+ 3-dose series) 10/02/2024 04/30/2024, 04/01/2024 Mammogram 06/18/2025 06/18/2024, 06/03, 11/13/2016, Additional history exists Colonoscopy 01/26/2028 01/25/2018 Colorectal Cancer Screening 01/26/2028 Respiratory Syncytial Virus (RSV) Immunization (Adult) (1 - 1-dose 75+ series) 2049 01/25/2018 Hepatitis C Virus (HCV) Screening Completed 10/03/2022 DTaP/Tdap/Td Immunization Discontinued 04/01/2024 TdaP Immunization Completed 04/01/2024 Influenza Immunization Completed , 07/10/2023, 07/04/2023, Additional history exists Discussion re Starting/Frequency of Mammograms Discontinued 06/18/2024, 11/13/2016, 11/13/2016 Human Papillomavirus (HPV) Immunization Aged Out No longer eligible based on patient's age to complete this topic Meningococcal Immunization (ACWY) Aged Out No longer eligible based on patient's age to complete this topic Rotavirus Immunization Aged Out No lo nger eligible based on patient's age to complete this topic Insurance [facility] [place] [facility] [place] Care Teams Hitcher Relationship Specialty Start Date End Date Belkys Weinberg, PINION AND WHEEL TRUER, EXPANDER MACHINE OPERATOR [address] [place], [place] [id number] PCP - General Advanced Practice Nurse 04/13/17
--- OUTSIDE RECORDS SUMMARY | 2025-01-22 13:09 | XMS_ITS | Encounter Summary ---
Author Organization [facility] Address [address] [place] [address] Care Team Providers Care Wood Heel Flap Inserter Name Role Phone Leilani Wilson MD Primary Care Provider Lyle Reese MD Unavailable [phone] Josep Bernal MD Unavailable [phone] Mariya Bynum RN Unavailable [phone] Brandy Au RN Unavailable [phone] Beka Luna MANAGER CONCRETE Unavailable [phone] Beka Luna MANAGER CONCRETE Unavailable [phone] Lian Bañuelos RN Unavailable [phone] Reason for Visit * Reason Onset Date Comments General 11/28/2023 Encounter Details Date Type Department Care Team (Late st Contact Info) Description 11/28/2023 Telephone [facility] Medical Group - Family Medicine [address] [place] [address] Leilani Wilson MD [address] [place] [address] General Social History Tobacco Use Types Packs/Day Years Used Date Smoking Tobacco: Never Smokeless Tobacco: Never Alcohol Use Standard Drinks/Week Comments Never 0 (1 standard drink = 0.6 oz pur e alcohol) AUDIT-C Answer Date Recorded Q1: How often do you have a drink containing alcohol? Never 10/17/2023 Q2: How many drinks containi ng alcohol do you have on a typical day when you are drinking? Patient does not drink Q3: How often do you have si x or more drinks on one occasion? 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 Answer Date of Assessment Author No 02/01/2021 3:05 PM MARIOT Mariajose Iyer RN * Is person blind or have serious difficulty seeing? Answer Date of Assessment Author No 02/01/2021 3:05 PM MARIOT Mariajose Iyer RN * Does person have serious difficulty walking/climbing stairs? Answer Date of Assessment Author No 02/01/2021 3:05 PM Mariajose Rivas RN * Does person have difficulty dressing/bathing? Answer Date of Assessment Author No 02/01/2021 3:05 PM Mariajose Rivas RN * Does person have difficulty doing errands alone? Answer Date of Assessment Author No 02/01/2021 3:05 PM Mariajose Rivas RN documented as of this encounter Mental Status * Does person have difficulty concentrating/remembering/making decisions? Answer Entry Date Author No 02/01/2021 3:05 PM Mariajose Rivas RN documented in this encounter Miscellaneous Notes * Telephone Encounter - Dee Dee Bowling CNA - 11/28/2023 8:39 AM CDT Greta from [facility] radiology left voice mail stated their is a CT order for patient scheduled for Sunday but they are needing new order. Order must have either or with contrast or with out contrast. Greta stated in voice mail order can not have both because they can not do both with contrast and with out contrast. Must be just one so they are needing new order. documented in this encounter Plan of Treatment Upcoming Encounters Date Type Department Care Team (Late st Contact Info) Description 02/04/2025 1:00 PM CDT Office Visit [facility] - Endocrinology [address] [place] [phone] Kelby Nicole MD [address] [facility] [place] [address] documented as of this encounter Visit Diagnoses Not on filedocumented in this encounter Additional Health Concerns Infection Onset Date Last Indicated Resolved Time COVID-19 Under Investigation 11/14/2024 11/14/2024 11/14/2024 3:10 PM CDT documented as of this encounter Care Teams Wood Heel Flap Inserter Relationship Specialty Start Date End Date Leilani Wilson MD [address] [place] [address] PCP - General Internal Medicine 07/12/22 Lyle Reese MD [facility]. [address] [address] Cardiology 08/29/22 Josep Bernal MD [facility] [place] [address] Physician Dermatology 01/31/23 Mariya Bynum RN Motor Vehicles SupervisorCutting And Creasing Press Operator 12/18/23 12/18/23 Brandy Au RN Post Acute Motor Vehicles SupervisorCutting And Creasing Press Operator 12/18/2312/17 Beka Luna, MANAGER CONCRETE [address] [address] Outpatient Senior Database Engineer Care Management 01/17/2401/01 Beka Luna, MANAGER CONCRETE [address] [address] Outpatient Senior Database Engineer Care Management 05/13/2405/04 Lian Bañuelos, RN [address] [address] Motor Vehicles SupervisorCutting And Creasing Press Operator 06/06/24 06/10/24 documented as of this encounter
--- OUTSIDE RECORDS SUMMARY | 2025-01-22 13:09 | XMS_ITS | Encounter Summary ---
Author Organization [facility] Address [address] [place] [address] Care Team Providers Care Siebel Architect Name Role Phone Leilani Wilson MD Primary Care Provider Lyle Reese MD Unavailable [phone] Josep Bernal MD Unavailable [phone] Reason for Visit * Reason Onset Date Comments MEDICATION REFILL 10/14/2024 Encounter Details Date Type Department Care Team (Late st Contact Info) Description 10/14/2024 Refill [facility] Medical Group - Family Medicine [address] [place] [address] Leilani Wilson MD [address] [place] [address] MEDICATION REFILL Social History Tobacco Use Types Packs/Day Years [...] you have a drink containing alcohol? Never 06/18/2024 Q2: How many drinks containi ng alcohol do you have on a typical day when you are drinking? Patient does not drink Q3: How often do you have si x or more drinks on one occasion? Never 06/18/2024 Overall Financial Resource Strain (CARDIA) Answe r Date Recorded How hard is it for you to pa y for the very basics like food, housing, medical care, and heating? Not hard at all 05/25/2024 PHQ-2 Answer Date Recorded Patient Health Questionnaire-2 Score 0 10/17/2024 [facility] - Occupational Stress [...] place to sleep or slept in a fpc (including now)? 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 Answer Date of Assessment Author No 05/25/2024 5:30 PM CDT Kiana Alcantara RN * Is person blind or have serious difficulty seeing? Answer Date of Assessment Author No 05/25/2024 5:30 PM CDT Kiana Alcantara RN * Does person have serious difficulty walking/climbing stairs? Answer Date of Assessment Author Yes 05/25/2024 5:30 PM CDT Kiana Alcantara RN * Does person have difficulty dressing/bathing? Answer Date of Assessment Author Yes 05/25/2024 5:30 PM CDT Kiana Alcantara RN * Does person have difficulty doing errands alone? Answer Date of Assessment Author Yes 05/25/2024 5:30 PM CDT Kiana Alcantara RN * Over the past 2 weeks, how often have you been bothered by any of the following problems? Question Answer Date of Assessment Author Little interest or pleasure in doing things Not at all 10/17/2024 12:22 PM PRINTS AND DRAWINGS CURATOR Genny Powell R N Feeling down, depressed, or hopeless Not at all 10/17/2024 12:22 PM PRINTS AND DRAWINGS CURATOR Genny Powell R N Patient Health Questionnaire -2 Score 0 10/17/2024 12:22 PM PRINTS AND DRAWINGS CURATOR Genny Powell R N documented as of this encounter Mental Status * Does person have difficulty concentrating/remembering/making decisions? Answer Entry Date Author No 05/25/2024 5:30 PM CDT Kiana Alcantara RN documented in this encounter Plan of Treatment Upcoming Encounters Date Type Department Care Team (Late st Contact Info) Description 02/04/2025 1:00 PM CDT Office Visit [facility] Physician Group - Endocrinology [address] [facility] [place] [address] Kelby Nicole MD [address] [facility] [place] [address] documented as of this encounter Visit Diagnoses Diagnosis Blister of skin Fibromyalgia Mylagia and myositis, unspecified H/O oral aphthous ulcers Personal history of other diseases of digestive system Behcet's disease (HCC) Behcet's syndrome documented in this encounter Additional Health Concerns Infection Onset Date Last Indicated Resolved Time COVID-19 Under Investigation 11/14/2024 11/14/2024 11/14/2024 3:10 PM CDT documented as of this encounter Care Teams Siebel Architect Relationship Specialty Start Date End Date Leilani Wilson MD [address] [id number] PCP - General Internal Medicine 07/12/22 Lyle Reese MD [address] [place] [address] Cardiology 08/29/22 Josep Bernal MD [facility] [place] [address] Physician Dermatology 01/31/23 documented as of this encounter
--- OUTSIDE RECORDS SUMMARY | 2025-01-22 13:09 | XMS_ITS | Encounter Summary ---
Author Organization [facility] Address [address] [place] [address] Care Team Providers Care Electrical Hardware Engineer Name Role Phone Leilani Wilson MD Primary Care Provider Lyle Reese MD Unavailable [phone] Josep Bernal MD Unavailable Reason for Visit * Reason Onset Date Comments MEDICATION REFILL 01/21/2025 Encounter Details Date Type Department Care Team (Late st Contact Info) Description 01/21/2025 Refill [facility] - Family Medicine [address] [place] [address] Leilani Wilson MD [address] [place] [address] MEDICATION REFILL Social History Tobacco [...] Recorded Patient Health Questionnaire-2 Score 6 01/20/2025 [facility] - Occupational [...] place to sleep or slept in a long-term (including now)? 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 Answer Entry Date Author No 05/25/2024 5:30 PM CDT Kiana Alcantara RN documented in this encounter Plan of Treatment Upcoming Encounters Date Type Department Care Team (Late st Contact Info) Description 02/04/2025 1:00 PM CDT Office Visit [facility] - Endocrinology [address] [facility], [facility] [place] [address] Kelby Nicole MD [facility] [place] [address] documented as of this encounter Visit Diagnoses Diagnosis Fibromyalgia Mylagia and myositis, unspecified documented in this encounter Care Teams Electrical Hardware Engineer Relationship Specialty Start Date End Date Leilani Wilson MD [address] [place] [id number] PCP - General Internal Medicine 07/12/22 Lyle Reese MD [facility] [address] [place] [address] Cardiology 08/29/22 Josep Bernal MD [address] [place] [address] Physician Dermatology 01/31/23 documented as of this encounter
--- OUTSIDE RECORDS SUMMARY | 2025-01-22 13:09 | XMS_ITS | Encounter Summary ---
Author Organization [facility] Address [address] [place] [address] Phone Care Team Providers Care Assistant Spa Director Name Role Phone Belkys Weinberg APRN, CNP Primary Care Provider + Hu Sparks MD Unavailable [phone] Encounter Details Date Type Department Care Team (Late st Contact Info) Description 11/23/2020 Telephone [facility] [address] [phone] Elida Hodge APRN LINEN GRADER [address] [address] Social History Tobacco Use Types Packs/Day Years Used Date Smoking Tobacco: Never Smokeless Tobacco: Never Alcohol Use Standard Drinks/Week Comments No 0 (1 standard drink = 0.6 oz pur e alcohol) PHQ-2 Answer Date Recorded Total Score - Questions 1-9 0 05/2020 Comments Unknown Sex and Gender Information Value Date Recorded Sex Assigned at Female 06/10/2024 9:36 AM CDT Legal Sex Female 9:30 AM CDT Gender Identity Female 03/18/2024 12:07 AM CDT Sexual Orientation Straight 06/10/2024 9: 36 AM CDT documented as of this encounter Plan of Treatment Not on file documented as of this encounter Visit Diagnoses Not on filedocumented in this encounter Additional Health Concerns Assessment Noted Time PHQ-9 Depression Total Score: 0 07/12/20 20 10:12 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
--- OUTSIDE RECORDS SUMMARY | 2025-01-22 13:09 | XMS_ITS | Encounter Summary ---
Author Organization [facility] Address [address] [place] [address] Phone Care Team Providers Care Industrial Training Specialist Name Role Phone Belkys Weinberg APRN, CNP Primary Care Provider + Hu Sparks MD Unavailable [phone] Reason for Visit * Reason Comments Medication Refill Encounter Details Date Type Department Care Team (Late st Contact Info) Description 09/07/2020 Refill [facility] [address] [phone] Deonte Gilliland MD [address] [address] Medication Refill Social History Tobacco Use Types Packs/Day Years [...] AM CDT documented as of this encounter Miscellaneous Notes * Telephone Encounter - Deonte Gilliland MD - 09/07/2020 10:34 AM FINANCIAL SERVICES CONSULTANT Refilled. NCIAL SERVICES CONSULTANT * Telephone Encounter - Ge Hammonds RN - 09/07/2020 8:17 AM CST Please refill. NCIAL SERVICES CONSULTANT documented in this encounter Plan of Treatment Not on file documented as of this encounter Visit Diagnoses Diagnosis Vitamin B12 deficiency- Primary Other B-complex deficiencies documented in this encounter Additional Health Concerns Assessment Noted Time PHQ-9 Depression Total Score: 0 07/12/20 20 10:12 AM FINANCIAL SERVICES CONSULTANT documented as of this encounter Care Teams Industrial Training Specialist Relationship Specialty Start Date End Date Belkys Weinberg, LINDA, SCRIPT DEVELOPER [address] [place] [address] PCP - General Advanced Practice Nurse 04/13/17 Hu Sparks MD [address] [place], [place] [address] Consulting Physician Oncology 11/28/24 11/28/24 documented as of this encounter
--- OUTSIDE RECORDS SUMMARY | 2025-01-22 13:09 | XMS_ITS | Encounter Summary ---
Author Organization [facility] Address [address] [place] [address] Care Team Providers Care Mixer And Scaler Name Role Phone Noam Minor MD Unavailable [phone] Basilio Powers MD Unavailable Sourav French MD Unavailable [phone] Fidel Santana MD Primary Care Provider [place], Destiney London MD PhD Unavailable [phone] Rk Krishnamurthy MD Unavailable [phone] Encounter Details Date Type Department Care Team (Latest Contact Info) Description 09/15/2020 Ophth Exam Ophthalmology Karoline Liu MD [address] [place] [address] Social History Tobacco Use Types Packs/Day Years Used Date Smoking Tobacco: Never Smokeless Tobacco: Never Alcohol Use Standard Drinks/Week Comments No 0 (1 standard drink = 0.6 oz pur e alcohol) Social Connection and Isolat ion Panel [NHANES] Answer Date Recorded In a typical week, how many times do you talk on the phone with family, friends, or neighbors? More than three times a week 11/18/2019 How often do you get togethe r with friends or relatives? Twice a week 11/18/2019 How often do you attend chur ch or latter-day services? More than 4 times per year 11/18/2019 Do you belong to any clubs o r organizations such as jainism groups, unions, fraternal or athletic groups, or school groups? Yes 11/18/2019 How often do you attend meet ings of the clubs or organizations you belong to? 1 to 4 times per year 11/18/2019 Are you , , di vorced, , never , or living with a partner? 11/18/2019 Overall Financial Resource Strain (CARDIA) Answe r Date Recorded How hard is it for you to pa y for the very basics like food, housing, medical care, and heating? Not hard at all 11/18/2019 PRAPARE - Transportation Answer Date Re corded In the past 12 months, has l ack of transportation kept you from medical appointments or from getting medications? No 11/01 In the past 12 months, has l ack of transportation kept you from meetings, work, or from getting things needed for daily living? No 11/18/2019 Comments No Sex and Gender Information Value Date Recorded Sex Assigned at Not on file Legal Sex Female 7:04 AM RESEARCH PHLEBOTOMIST Gender Identity Female 10/20/2020 2:10 PM RESEARCH PHLEBOTOMIST Sexual Orientation Straight 10/20/2020 2: 10 PM RESEARCH PHLEBOTOMIST documented as of this encounter Plan of Treatment Not on file documented as of this encounter Visit Diagnoses Not on filedocumented in this encounter Eye Exam Visual Acuity Right eye Left eye Near sc 20/40 ph 20/25 20/20 Tonometry (Tonopen, 5:57 PM) Right eye Left eye Pressure 11 13 Pupils Dark Light Shape React APD Right eye 5 3 Round Slow None Left eye 5 3 Round Slow None Visual Austin Right eye Left eye Restrictions Partial outer superi or temporal, inferior temporal, inferior nasal deficiencies Total superior temporal, inferior temporal deficiencies; Partial outer superior nasal, inferior nasal deficiencies No paracentral scotoma. Extraocular Movement Right eye Left eye Full Full No double vision Neuro/Psych Oriented x3: Yes Mood/Affect: Normal Dilation Both eyes: 1.0% Mydriacyl, 2 .5% Phenylephrine @ 5:58 PM Color Right eye Left eye Ishihara 4.5/11 5.5/11 External Exam Right eye Left eye External Normal Normal Slit Lamp Exam Right eye Left eye Lids/Lashes Normal Normal Conjunctiva/Sclera White and quiet White and ozzie et Cornea Clear Clear Anterior Chamber Deep and quiet Deep and quiet Iris Round and reactive Round and liset ctive Lens Tr NS Tr NS Vitreous Normal Normal Fundus Exam Right eye Left eye Disc ?tr blurred margins with mild PP A PPA C/D Ratio 0.4 0.4 Macula Normal Normal Vessels Normal Normal Periphery peripheral RPE changes periphera l RPE changes Care Teams Mixer And Scaler Relationship Specialty Start Date End Date Fidel Santana MD [address] [place] [address] PCP - General Internal Medicine 09/15/20 Noam Minor MD [address] [place] [address] Consulting Physician Gastroenterology 11/20/19 Basilio Powers MD [address] [place] [address] Surgeon General Surgery 11/20/19 Sourav French MD [address], [place] [address] Consulting Physician Gastroenterology 02/17/20 Destiney Prajapati MD PhD [address] DEPT OPTHALMOLOGY, [address] [place] [address] Referring Physician Ophthalmology 10/22/20 Rk Krishnamurthy MD [address] DEPT OPTHALMOLOGY, [address] [place] [address] Resident Ophthalmology 10/22/20 documented as of this encounter
--- OUTSIDE RECORDS SUMMARY | 2025-01-22 13:09 | XMS_ITS | Encounter Summary ---
Author Organization [facility] Address [address] [facility] [address] [place] [address] Phone Care Team Providers Care E/M Engineer Name Role Phone Noam Minor MD Unavailable Basilio Powers MD Unavailable [phone] Sourav French MD Unavailable Fidel Santana MD Primary Care Provider [place], Destiney London MD PhD Unavailable Rk Krishnamurthy MD Unavailable Encounter Details Date Type Department Care Team (Late st Contact Info) Description 09/17/2020 Ophth Exam [facility] Ophthalmology [address] [place] [address] 1[address] [place] [phone] Rk Krishnamurthy MD [address] [facility] [phone] [address] [place] [address] Social History Tobacco Use Types Packs/Day Years [...] often do you attend chur ch or episcopal services? 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 PRESS OPERATOR Gender Identity Female 10/20/2020 2:10 PM TWISTING PRESS OPERATOR Sexual Orientation Straight 10/20/2020 2: 10 PM TWISTING PRESS OPERATOR documented as of this encounter Plan of Treatment Not on file documented as of this encounter Visit Diagnoses Not on filedocumented in this encounter Eye Exam Visual Acuity Right eye Left eye Near sc 20/20 20/100 +1 [facility] Tonometry (Palpation, 9:29 AM) Right eye Left eye Pressure STP STP Pupils Dark Light Shape React APD Right eye 5 3 Round Slow None Left eye 5 3 Round Slow None Visual Austin Right eye Left eye Restrictions Partial outer superi or temporal, inferior temporal, superior nasal, inferior nasal deficiencies Partial outer superior temporal, inferior temporal, superior nasal, inferior nasal deficiencies Patient reported seeing double vision in the center of her visual field OS during testing. Appears more constricted w/ dredge deckhand testing OS>OD Extraocular Movement Right eye Left eye Full Full Pain in all gazes except downgaze Neuro/Psych Oriented x3: Yes Mood/Affect: Normal Dilation Both eyes: 1.0% Mydriacyl, 2 .5% Phenylephrine @ 9:30 AM Color Right eye Left eye Ishihara 5.5 3 Stereo Fly: + Animals: 2 Circles: 3 External Exam Right eye Left eye External [...] with mild PP A PPA C/D Ratio 0.6 0.6 Macula Normal Normal Vessels Normal Normal Periphery peripheral RPE changes periphera l RPE changes Care Teams E/M Engineer Relationship Specialty Start Date End Date Fidel Santana MD [address] [facility] [address] [address] PCP - General Internal Medicine 09/15/20 Noam Minor MD [address] [address] Consulting Physician Gastroenterology 11/20/19 Basilio Powers MD [address] [facility] [address] [place] [address] Surgeon General Surgery 11/20/19 Sourav French MD [address] [facility] [address] [address] Consulting Physician Gastroenterology 02/17/20 Destiney Prajapati MD PhD [address] DEPT OPTHALMOLOGY, [address] [place] [address] Referring Physician Ophthalmology 10/22/20 Rk Krishnamurthy MD [address] OPTHALMOLOGY, [address] [place] [address] Resident Ophthalmology 10/22/20 documented as of this encounter
--- OUTSIDE RECORDS SUMMARY | 2025-01-22 13:10 | XMS_ITS | Referral Summary ---
Author Organization [facility] Address [address] [place] [address] Care Team Providers Care Assistant Production Manager Name Role Phone Noam Minor MD Unavailable Basilio Powers MD Unavailable [phone] Sourav French MD Unavailable Fidel Santana MD Primary Care Provider [place], Destiney London MD PhD Unavailable Rk Krishnamurthy MD Unavailable Encounters Date Type Department Care Team Description 01/15/2025 1:50 PM CDT Clinical Support [facility] [address] [place] [address] Environmental and seasonal allergies (Primary Dx) 01/09/2025 Orders Only [facility] [address] [place] [address] Alayna Clark MD Recurrent infections (Primary Dx) 01/01/2025 Telephone [facility] [address] [place] [address] Emerita Norman, RN 12/31/2024 2:[address] [facility] [address] [place] [place] [address] Recurrent infections 12/31/2024 2:00 PM CDT Office Visit [facility] [address] [place] [address] Eduardo, Alayna Beltran MD Recurrent infections from Last 3 Months Allergies Active Allergy Reactions Criticality Noted Date Comments Abaloparatide Dizziness,Fever,Stom ac h upset,Headache,Nausea only,Other (See comments),Palpitations Medium 07/29/2024 Baclofen Anxiety Low 08/21/2024 UPTIGHT AND MADE HER WANT TO CLIMB THE OLSON Gabapentin Joint pain,Mental status changes,Other (See comments),Palpitations ,Shortness of breath,Vision changes High 08/11/2024 Face numbness Milnacipran Unknown 10/07/2024 Worsened depression and fibromyalgia Pregabalin Anxiety,Dizziness,Susan in t pain,Muscle pain,Other (See comments),Palpitations Medium 08/11/2024 Lip numbness, JERKING Medications zonisamide (ZONEGRAN) 100 mg capsuleIndication s:Partial Epilepsy Treatment Adjunct Take 3 capsules (300 mg total) by mouth nightly Active dexlansoprazole (DEXILANT) 60 mg capsule Take 1 capsule (60 mg total) by mouth nightly Active cyanocobalamin (Vitamin B-12) 1,000 mcg/mL injection Inject 1,000 mcg into the muscle as instructed every 2 (two) weeks Takes every other Sunday. Last dose 02/13/20. Active acetaminophen 500 mg capsule Take 2 capsules (1,000 mg total) by mouth every 8 (eight) hours as needed for pain 021 Active Additional Information Patient not taking.Reported on 08/14/2022 ondansetron ODT (ZOFRAN-ODT) 4 mg disintegrating tablet Take 1 tablet (4 mg total) by mouth every 8 (eight) hours as needed for nausea or vomiting Active PNV no.153/FA/om3/dha /epa/fish ( GUMMIES ORAL) Take by mouth Active simethicone (GAS-X) 125 mg capsule Take 4-10 capsules (500-1,250 mg total) by mouth 3 times daily Active cycloSPORINE (RESTASIS) 0.05 % ophthalmic emulsion 1 drop 2 (two) times a day Active sucralfate (CARAFATE) suspension 1 gram/10 mL TAKE 10 ML BY MOUTH FOUR TIMES DAILY NEEDED Active hydrOXYzine (ATARAX) 25 mg tablet Take 1 tablet (25 mg total) by mouth 3 (three) times a day as needed Active magnesium hydroxide (PAN CHEWS) 311 mg tablet,chewable chewable tablet Take 1 tablet (311 mg total) by mouth every 12 (twelve) hours as needed Active meloxicam (MOBIC) 15 mg tablet Take 1 tablet (15 mg total) by mouth daily Active SUMAtriptan (IMITREX) 100 mg tablet Take 1 tablet (100 mg total) by mouth once as needed Active BD Luer-Deshaun Syringe 3 mL 25 x 5/8 syringe INJECT 1 SYRINGE SUBCUTANEOUSLY EVERY 14 DAY Active syringe with needle, safety (BD Integra Syringe) 3 mL 23 gauge x 1 syringe USE WITH VITAMIN-BEFORE INJECTION ONCE A WEEK Active tiZANidine (ZANAFLEX) 4 mg tablet Take 1 tablet (4 mg total) by mouth nightly Active gabapentin (NEURONTIN) 100 mg capsule Take 1 capsule (100 mg total) by mouth nightly 30 capsule 2024 Discontinued scopolamine 1 mg over 3 days patch 3 day APPLY ONE PATCH TOPICALLY BEHIND ONE EAR AND CHANGE EVERY 72 HOURS DIRECTED 2024 Discontinued clonazePAM (KlonoPIN) 1 mg tablet Take 2 mg by mouth 3 (three) times a day as needed 1 to 3 tablets at bedtime 2024 Discontinued cyanocobalamin (Vitamin B-12) 1,000 mcg/mL injection Inject 1,000 mcg into the muscle as instructed once a week 2024 Discontinued docusate sodium (COLACE) 100 mg capsuleIndication s:constipation,St ool Softener Take 1 capsule (100 mg total) by mouth 2 (two) times a day 15 capsule 2024 Discontinued oxyCODONE (ROXICODONE) 5 mg immediate release tabletIndications :Pain Take 1 tablet (5 mg total) by mouth every 4 (four) hours as needed for pain 10 tablet 2024 Discontinued folic acid (FOLVITE) 1 mg tablet Take 1,000 mcg by mouth daily 2024 Discontinued sertraline (ZOLOFT) 100 mg tablet Take 200 mg by mouth daily 2024 Discontinued meclizine HCl (ANTIVERT ORAL) Take 25 mg by mouth 2024 Discontinued ascorbic acid (VITAMIN C) 1,000 mg tablet Take 1,000 mg by mouth daily 2024 Discontinued pancrelipase (Zenpep) 40,000-126,000- 168,000 unit per capsule Zenpep 40,000 unit-126,000 unit-168,000 unit capsule,delayed release TAKE 4 CAPSULES BY MOUTH THREE TIMES DAILY 2024 Discontinued orphenadrine ER (NORFLEX) 100 mg 12 hr tablet 2024 Discontinued insulin syringe-needle U-100 1 mL 31 gauge x 5/16 syringe INJECT B12 UNDER THE SKIN ONCE WEEKLY 2024 Discontinued amitriptyline (ELAVIL) 10 mg tablet Take 30 mg by mouth nightly 2024 Discontinued hyoscyamine (LEVSIN) 0.125 mg tablet Take 125 mcg by mouth 4 (four) times a day 2024 Discontinued metoprolol tartrate (LOPRESSOR) 25 mg immediate release tablet Take 12.5 mg by mouth 2 (two) times a day 2024 Discontinued Tirosint 100 mcg capsule Take 1 capsule (100 mcg total) by mouth every morning 90 capsule 2 2024 Discontinued pneumococcal 23-valent (PNEUMOVAX 23) 25 mcg/0.5 mL vaccineIndication s:Prevention of Streptococcus Pneumoniae Infection Inject 0.5 mL into the muscle as instructed once for 1 dose 0.5 mL 025 2024 Active Problems Problem Noted Date Diagnosed Date Lichen planus 12/31/2024 Post menopausal syndrome 12/05/2021 Assessment & Plan (12/05/2021 8:26 AM CDT): Symptomatic with insomnia, hot flashes , hair loss and weight gain Patient had hysterectomy - recommended evaluation by Gynecology for possible use of ERT if indicated based on symptoms. Acquired hypothyroidism 12/02/2021 Assessment & Plan (08/14/2022 3:50 PM SHEET ROLLER OPERATOR): Patient is clinically euthyroid TSH was normal at 1.55 on 06/26/22 She developed palpitation and chest pains, and was evaluated by cardiology TSH was low at 0.01 with high free T4 of 1.62 on 07/17/22 She stopped her thyroid medication, but still has some cardiac symptoms. Plan: Explained to patient her last labs Start back on Tirosint only 100 mcg/day Stay off Cytomel. Patient to check with her medical nurse regarding cardiac symptoms. The proper way of taking Levothyroxine reviewed with patient. Check TSH in 6 weeks I will adjust the dose based on lab results. Assessment & Plan (12/05/2021 8:24 AM CDT): Patient is clinically euthyroid TSH was normal at 0.619 on 08/17/21 Plan: Continue same dose of Levothyroxine The proper way of taking Levothyroxine reviewed with patient. Check TSH in 4 weeks I will adjust the dose based on lab results. Adrenal insufficiency 10/27/2020 Assessment & Plan (10/27/2020 3:44 PM SHEET ROLLER OPERATOR): Etiology of low cortisol <1 at OSH unclear and perhaps secondary to corticosteroid-induced adrenal suppression; no associated pigmentation changes of the skin and mucosa; no alterations in potassium, sodium Adequate response to recent corticotropin (standard 250 mcg) stimulation test (09/17/2020) Basal: 11.2 mcg/dL 30-min: 20 mcg/dL 60-min: 21 mcg/dL Imaging: CT or MRI normal pituitary and adrenal glands Plan: No maintenance therapy required Abnormal thyroid function test 10/27/2020 Assessment & Plan (10/27/2020 3:47 PM SHEET ROLLER OPERATOR): Clinically euthyroid Thyroid exam shows no enlargement, [...] etiology, but likely would not warrant treatment Decreased vision in both eyes 09/21/2020 Overview (09/21/2020): Hospital F/U for decreased vision, eye pain [...] she got a new prescription from her bar machine operator production. Began having dull pain at the back of both eyes in late Aug. Saw her bar machine operator production (Dr. Ajay Desir in [place]) again, who performed testing and referred her [...] drops. Hx gastric bypass surgery in 2004. Assessment & Plan (09/21/2020 5:00 PM SHEET ROLLER OPERATOR): --Exam today with [facility] decreased at distance (OD: 20/500, OS: 20/150) but otherwise fairly normal at near (OD: J1+ (20/20), OS: J3 (20/40)). No APD on exam today, color vision decreased OU, stereovision testing with 9 stereodots, 3/3 animals). --Anterior and posterior exams [...] call patient to schedule ERG as well Abdominal pain 02/16/2020 Overview (02/16/2020): Added automatically from request for surgery [id number] Assessment & Plan (03/13/2020 11:03 AM CDT): Patient had a negative endoscopy November 2019 with a normal gastrojejunal anastomosis. The gabapentin seems to have been effective at controlling her abdominal pain. Her bowel movements are starting to firm up. However, she has a new side effect of myoclonus and this is rarely reported with gabapentin. I suspect since gabapentin was the new medication that this is the cause. Therefore she is only on 100 mg, we should stop the gabapentin due to myoclonus. For she will stop the gabapentin for few days to see if the myoclonus resolves. Will try pregabalin (Lyrica) 25 mg once daily to see if this has some beneficial effect on her pain syndrome similar to the gabapentin. She cannot tolerate tricyclic antidepressants. She may continue on PPI and sucralfate. Also I would consider cognitive therapy in the GI lab nursing specialty area. She will contact me regarding any potential side effects from the Lyrica. History of Andie-en-Y gastric bypass 11/14/2019 Migraines 07/01/2018 Assessment & Plan (07/01/2018 11:16 AM CDT): Interestingly, her abdominal complaints seem to improve after better control of migraine. I suspect this is visceral hypersensitivity. Constipation due to outlet dysfunction 8 Assessment & Plan (08/19/2018 12:26 PM SHEET ROLLER OPERATOR): I believe she also may have a [...] did not benefit from physical therapy in [place]. I would like her to see a [facility] motility/neuro gastroenterology unit. Severe protein-calorie malnutrition 02/25/2018 Assessment & Plan (11/20/2019 12:30 PM CDT): Will try to improve this now that she is on meclizine. She will call dr. Powers if she decides she wants jejunal feeding tube. She will activate [email or web address] so she can communicate with Dr. French, her private GI doc [place] to discharge Esophageal dysphagia 02/12/2018 Assessment & Plan (11/17/2019 5:40 PM CDT): Multiple scopes and never inflammation or stricture. 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 Assessment & Plan (08/19/2018 12:27 PM SHEET ROLLER OPERATOR): Improved after dilation. She also maintains on Dexilant as well as Carafate. She can wean down the Carafate at this time due to her constipation Generalized abdominal pain 02/12/2018 Assessment & Plan (11/20/2019 12:27 PM CDT): Dr. Minor is managing this Assessment & Plan (04/15/2018 3:41 PM CDT): Patient has multiple symptoms which may be related to visceral hypersensitivity. This includes esophageal symptoms epigastric discomfort and alternating diarrhea constipation. Rule out anatomical disorder of her small bowel with upper GI small bowel series. Will begin nortriptyline 10 mg q.h.s. for visceral hypersensitivity as she did not tolerate mirtazapine which was too sedating. Continue with Carafate for possible bile reflux. We now has no that her outlet is open by endoscopy. Cognitive therapy may be useful. I will see her after the upper GI small bowel series I will also discuss the possibility of esophageal motility study regarding dysphagia. Iron deficiency anemia 02/12/2018 Assessment & Plan (08/19/2018 12:27 PM SHEET ROLLER OPERATOR): Seeing Hematology and has been repleted. This may relate to her gastric bypass and of course she had very poor nutrition in the past year. This is improving. Assessment & Plan (02/12/2018 4:52 PM CDT): Likely related to combination of her gastric bypass and nutritional with poor oral intake. Will recheck her iron studies. Heartburn 02/12/2018 Assessment & Plan (02/12/2018 4:52 PM CDT): Is possible at the ulceration of the [...] barium due to prior history of constipation. Alternating constipation and diarrhea 02/12/2018 Assessment & Plan (07/01/2018 11:15 AM CDT): Will give her a trial of Trulance once daily. She has let me know the result. She seems more constipation predominant. She had tried Linzess in the past without success. Assessment & Plan (02/12/2018 4:54 PM CDT): Patient likely has a functional bowel disorder. I will begin her on mirtazapine 7.5 mg q.h.s. will follow up at the time her procedure will then schedule appointment. The mirtazapine should help with her nausea and abdominal discomfort. Will also consider bacterial overgrowth testing as well Non-intractable vomiting Resolved Problems Problem Noted Date Diagnosed Date Resolved Date Anastomotic ulcer S/P gastric bypass 11/07/2016 02/12/2018 Immunizations Immunization Administration Dates Next Due Pneumococcal Polysaccharide PPV23 01/15/2025 Social History Tobacco Use Types Packs/Day Years Used Date Smoking Tobacco: Never Smokeless Tobacco: Never Tobacco Cessation:Counseling Given: Not Answered Alcohol Use Standard Drinks/Week Comments No 0 [...] often do you attend chur ch or taoism services? More than 4 times per year 11/18/2019 Do you belong to any clubs o r organizations such as christian groups, unions, fraternal or athletic groups, or school groups? Yes 11/18/2019 How often do you attend meet ings of the clubs or organizations you belong to? 1 to 4 times per year 11/18/2019 Are you , , di vorced, , never , or living with a partner? 11/18/2019 AUDIT-C Answer Date Recorded Q1: How often do you have a drink containing alcohol? Never 12/31/2024 Q2: How many drinks containi ng alcohol do you have on a typical day when you are drinking? Patient does not drink Q3: How often do you have si x or more drinks on one occasion? Never 12/31/2024 Overall Financial Resource Strain (CARDIA) Answe r [...] on file Legal Sex Female 7:04 AM SHEET ROLLER OPERATOR Gender Identity Female 10/20/2020 2:10 PM SHEET ROLLER OPERATOR Sexual Orientation Straight 10/20/2020 2: 10 PM SHEET ROLLER OPERATOR Last Filed Vital Signs Vital Sign Reading Time Taken Comments Blood Pressure 116/73 12/31/2024 1:31 PM CDT Pulse 92 12/31/2024 1:31 PM CDT Temperature 36.7 C (98 F) 12/31/2024 1:31 PM CDT Respiratory Rate 18 12/31/2024 1:31 PM CDT Oxygen Saturation 100% 12/31/2024 1:31 PM CDT Inhaled Oxygen Concentration - - Weight 83.9 kg (185 lb) 12/31/2024 1:31 PM CDT Height 170.2 cm (5' 7 ) 12/31/2024 1:31 PM CDT Body Mass Index 28.98 12/31/2024 1:31 PM CDT Plan of Treatment Not on file Medical Devices Implanted Type Area Shop Girl Device Identifier Shelf Expiration Date Model / Serial / Lot Bladder Stimulator- 016 Implanted:2015 (Quantity not on file) Pelvis Medtronic [id number] / / Description:Interstim Procedures Procedure Name Priority Date/Time Associated Diagnosis Comments IGG Routine 12/31/2024 2:50 PM CDT Recurrent infections IGM Routine 12/31/2024 2:50 PM CDT Recurrent infections IGE Routine 12/31/2024 2:50 PM CDT Recurrent infections STREP PNEUMONIAE ANTIBODY SEROTYPES Routine 12/31/2024 2:50 PM CDT Recurrent infections TETANUS ANTIBODY, IGG Routine 12/31/2024 2:50 PM CDT Recurrent infections IGA Routine 12/31/2024 2:50 PM CDT Recurrent infections LYMPHOCYTE SUBPOPULATION 13 Routine 12/31/2024 2:50 PM CDT Recurrent infections ALLERGEN BIRCH COMMON SILVER (TREE) IGE Routine 12/31/2024 2:50 PM CDT Recurrent infections ALLERGEN ELM (TREE) IGE Routine 01/01/20 2:50 PM CDT Recurrent infections ALLERGEN MAPLE/BOX ELDER (TREE) IGE Routine 12/31/2024 2:50 PM CDT Recurrent infections ALLERGEN MOUNTAIN JUNIPER (TREE) IGE Routine 12/31/2024 2:50 PM CDT Recurrent infections ALLERGEN MULBERRY (TREE) IGE Routine 12/31/2024 2:50 PM CDT Recurrent infections ALLERGEN OAK RED (TREE) IGE Routine 12/31/2024 2:50 PM CDT Recurrent infections ALLERGEN SYCAMORE SRI LANKAN (TREE) IGE Routine 12/31/2024 2:50 PM CDT Recurrent infections ALLERGEN WALNUT (TREE) IGE Routine 12/31/2024 2:50 PM CDT Recurrent infections ALLERGEN BERMUDA GRASS (GRASS) IGE Routine 12/31/2024 2:50 PM CDT Recurrent infections ALLERGEN THANG GRASS (GRASS) IGE Routine 12/31/2024 2:50 PM CDT Recurrent infections ALLERGEN EVANS GRASS (GRASS) IGE Routine 12/31/2024 2:50 PM CDT Recurrent infections ALLERGEN PLANTAIN EAST TIMORESE (WEED) IGE Routine 12/31/2024 2:50 PM CDT Recurrent infections ALLERGEN NORMAN'S QUARTER (WEED) IGE Routine 12/31/2024 2:50 PM CDT Recurrent infections ALLERGEN PIGWEED ROUGH (WEED) IGE Routine 12/31/2024 2:50 PM CDT Recurrent infections ALLERGEN RAGWEED SHORT/COMMON (WEED) IGE Routine 12/31/2024 2:50 PM CDT Recurrent infections ALLERGEN NETTLE (WEED) IGE Routine 12/31/2024 2:50 PM CDT Recurrent infections ALLERGEN ALTERNARIA TENUIS (MOLD) IGE Routine 12/31/2024 2:50 PM CDT Recurrent infections ALLERGEN ASPERGILLUS FUMIGATUS (MOLD) IGE Routine 12/31/2024 2:50 PM CDT Recurrent infections ALLERGEN CLADOSPORIUM HERBARUM (MOLD) IGE Routine 12/31/2024 2:50 PM CDT Recurrent infections ALLERGEN PENICILLIUM CHRYSOGENUM (MOLD) IGE Routine 12/31/2024 2:50 PM CDT Recurrent infections ALLERGEN EPITHELIA/DANDER CAT (ANIMAL) IGE Routine 12/31/2024 2:50 PM CDT Recurrent infections ALLERGEN COCKROACH SRI LANKAN (INSECT) IGE Routine 12/31/2024 2:50 PM CDT Recurrent infections ALLERGEN DERMATOPHAGOIDES FARINAE (INSECT) IGE Routine 12/31/2024 2:50 PM CDT Recurrent infections ALLERGEN DERMATOPHAGOIDES PTERONYSSINUS (INSECT) IGE Routine 12/31/2024 2:50 PM CDT Recurrent infections ALLERGEN EPITHELIA/DANDER DOG (ANIMAL) IGE Routine 12/31/2024 2:50 PM CDT Recurrent infections ALLERGEN MOUSE MIX (ANIMAL) IGE Routine 12/31/2024 2:50 PM CDT Recurrent infections ALLERGEN RAT MIX (ANIMAL) IGE Routine 12/31/2024 2:50 PM CDT Recurrent infections COLONOSCOPY Routine 01/25/2018 DIAGNOSTIC MAMMOGRAM BILATERAL W VINICIO Routine 11/13/2016 5:54 PM CDT from Last 3 Months or Most Recently Relevant to Health Maintenance Results * Allergen Rat mix (animal) IgE (12/31/2024 2:50 PM CDT) [facility] Rat mix IgE <0.10 0.00 - 0.34 kUnits/L Blood 12/31/2024 2:50 PM CDT 12/31/2024 5:30 PM CDT Alayna Clark MD LAB BLOOD ORDERABLES Final Result Performing Organization Address City/[facility] Co de Phone Number [facility] [place] [address] * Allergen Mouse mix (animal) IgE (12/31/2024 2:50 PM CDT) [facility] Mouse mix IgE <0.10 0.00 - 0.34 kUnits/L Blood 12/31/2024 2:50 PM CDT 12/31/2024 5:30 PM CDT Alayna Clark MD LAB BLOOD ORDERABLES Final Result [facility] [place] [address] * Lymphocyte Subpopulation 13 (12/31/2024 2:50 PM CDT) [facility] WBC 7.56 3.80 - 9.90 K/cumm Lymphocyte pct 23.9 20.0 - 54.3 % [facility] Lymphocyte abs 1,807 /cumm [facility] CD3 pct 81 60 - 88 % [facility] CD3 abs 1,464 661 - 1,963 /cumm [facility] CD4 pct 45 31 - 64 % [facility] CD4 abs 813 365 - 1,294 /cumm [facility] CD8 pct 29 12 - 40 % [facility] CD8 abs 524 187 - 781 /cumm [facility] CD19 pct 13 6 - 25 % [facility] CD19 abs 235 86 - 488 /cumm [facility] [id number] pct 6 5 - 25 % [facility] [id number] abs 108 76 - 467 /cumm [facility] CD2 pct 84 % [facility] CD2 abs 1,518 /cumm [facility] CD40 pct 13 % [facility] CD40 abs 235 /cumm [facility] HLA-DR pct 16 % [facility] HLA-DR abs 289 /cumm [facility] CD3 HLA-DR pct 2 % [facility] CD3 HLA-DR abs 36 /cumm [facility] CD16 pct 5 % [facility] CD16 abs 90 /cumm [facility] TCR alpha/beta pct 72 % [facility] TCR alpha/beta abs 1,301 /cumm [facility] TCR gamma/delta pct 7 % [facility] TCR gamma/delta abs 126 /cumm [facility] HLA-ABC pct 100 % [facility] HLA-ABC abs 1,807 /cumm [facility] beta-2 microglobulin pct 100 % [facility] beta-2 microglobulin abs 1,807 /cumm [facility] CD4/CD8 ratio 1.6 [facility] Blood 12/31/2024 2:50 PM CDT 12/31/2024 5:30 PM CDT Narrative [facility] - 12/31/2024 10:46 PM CDT This test was developed and its performance characteristics determined by the [facility]. It has not been cleared or approved by the US Food and Drug Administration. This test is used for clinical purposes. It should not be regarded as investigational or for research. This laboratory is certified under the Clinical Laboratory Improvement Amendments (CLIA) as qualified to perform high complexity clinical laboratory testing. If reference ranges are not populated, there is no established reference range for that parameter for the patient s age. Alayna Clark MD LAB BLOOD ORDERABLES [place] [address] * Allergen Penicillium chrysogenum (mold) IgE (12/31/2024 2:50 PM CDT) Penicillium chrysogenum IgE <0.10 0.00 - 0.34 kUnits/L Blood 12/31/2024 2:50 PM CDT 12/31/2024 5:30 PM CDT Alayna Clark MD LAB BLOOD ORDERABLES Final Result Performing Organization Address City/[facility]/[place] [address] * Allergen [place] (tree) IgE (12/31/2024 2:50 PM CDT) [place] IgE <0.10 0.00 - 0.34 kUnits/L Blood 12/31/2024 2:50 PM CDT 12/31/2024 5:30 PM CDT Result [facility] Alayna Clark MD LAB BLOOD ORDERABLES Final Result Performing Organization Address City/[facility] [place] [address] * Allergen Mountain juniper (tree) IgE (12/31/2024 2:50 PM CDT) Mountain juniper IgE <0.10 0.00 - 0.34 kUnits/L Blood 12/31/2024 2:50 PM CDT 12/31/2024 5:30 PM CDT Alayna Clark MD LAB BLOOD ORDERABLES Final Result Performing Organization Address City/[facility]/ZIP Co de Phone Number [facility] [place] [address] * Tetanus antibody, IgG (12/31/2024 2:50 PM CDT) Pathologist [facility] Tetanus IgG Ab Positive [facility] Comment: REFERENCE VALUE Vaccinated: Positive (>= 0.01 IU/mL) Unvaccinated: Negative (< 0.01 IU/mL) Tetanus IgG Value 1.62 IUnits/mL [facility] Comment: ADDITIONAL INFORMATION This test was developed and its performance characteristics determined by [facility] in a manner consistent with CLIA requirements. This test has not been cleared or approved by the U.S. Food and Drug Administration. Test Performed by: [facility] [place] [address] Casting Tester: Oseas Beltrán Ph.D.; CLIA# [id number] Blood 12/31/2024 2:50 PM CDT 12/31/2024 6:31 PM CDT Alayna Clark MD LAB BLOOD ORDERABLES Final Result [facility] [place] [address] [facility] * Strep pneumoniae antibody serotypes (12/31/2024 2:50 PM CDT) S. pneumo Type 1 (1) 0.7 >=1.0 mcg/mL [facility] Lab S. pneumo Type 2 (2) 1.0 >=1.0 mcg/mL [facility] S. pneumo Type 3 (3) 0.2 >=1.0 mcg/mL [facility] S. pneumo Type 4 (4) 0.2 >=1.0 mcg/mL [facility] S. pneumo Type 5 (5) 0.4 >=1.0 mcg/mL [facility] S. pneumo Type 8 (8) 1.9 >=1.0 mcg/mL [facility] S. pneumo Type 9N (9) 0.5 >=1.0 mcg/mL [facility] S. pneumo Type 12F (12) See Footnote >=1.0 mcg/mL [facility] Comment: No result available due to non-linear dilution response for this serotype. See Interpretation. S. pneumo Type 14 (14) 1.2 >=1.0 mcg/mL [facility] S. pneumo Type 17F (17) 0.7 >=1.0 mcg/mL [facility] S. pneumo Type 19F (19) 2.8 >=1.0 mcg/mL [facility] S. pneumo Type 20 (20) 2.7 >=1.0 mcg/mL [facility] S. pneumo Type 22F (22) 1.4 >=1.0 mcg/mL [facility] S. pneumo Type 23F (23) 1.6 >=1.0 mcg/mL [facility] S. pneumo Type 6B (26) 0.7 >=1.0 mcg/mL [facility] S. pneumo Type 10A (34) 1.8 >=1.0 mcg/mL [facility] S. pneumo Type 11A (43) 1.3 >=1.0 mcg/mL [facility] S. pneumo Type 7F (51) 0.5 >=1.0 mcg/mL [facility] S. pneumo Type 15B (54) 1.2 >=1.0 mcg/mL [facility] S. pneumo Type 18C (56) 0.2 >=1.0 mcg/mL [facility] S. pneumo Type 19A (57) 2.7 >=1.0 mcg/mL [facility] S. pneumo Type 9V (68) 0.3 >=1.0 mcg/mL [facility] S. pneumo Type 33F (70) 4.2 >=1.0 mcg/mL [facility] Pneum Ab 23 interp See Footnote MARTHA Garza Comment: Unable to quantitate serotype 12F (12) due to nonlinear dilution response of patient sample. Overall interpretation of pneumococcal antibody serology panel can be based on the reported 22 serotypes. Evaluation of the immune response following pneumococcal vaccination can be assessed by measuring serotype-specific Streptococcus pneumonia IgG antibodies. Either of the following conditions is consistent with a normal response to Streptococcus pneumonia vaccination: 1. When comparing pre and post-vaccination samples, antibody concentrations increased by at least 2-fold for either >50% of serotypes in children <6 years of age or >70% of serotypes for individuals >6 years of age. 2. In either a pre- or post-vaccination sample, antibody concentrations >=1.0 mcg/mL for either >50% of serotypes for children <6 years of age or >70% of serotypes for individuals >6 years of age. Results >=1.0 mcg/mL or those showing a >=2-fold change are consistent with an immune response, but are not necessarily sufficient to provide protection against infection. ADDITIONAL INFORMATION This test was developed and its performance characteristics determined by [facility] in a manner consistent with CLIA requirements. This test has not been cleared or approved by the U.S. Food and Drug Administration. Test Performed by: [facility] [place] [address] Casting Tester: Oseas Beltrán Ph.D.; CLIA# [id number] Blood 12/31/2024 2:50 PM CDT 12/31/2024 7:03 PM CDT us Alayna Clark MD LAB BLOOD ORDERABLES Final Result MARTHA HARDEN [facility] [place] [address] [facility] * Allergen [place] grass (grass) IgE (12/31/2024 2:50 PM CDT) [facility] Signature [place] grass IgE <0.10 0.00 - 0.34 kUnits/L Blood 12/31/2024 2:50 PM CDT 12/31/2024 5:30 PM CDT Alayna Clark MD LAB BLOOD ORDERABLES Final Result Performing Organization Address [facility] de Phone Number [facility] [place] [address] * Allergen Plantain moroccan (weed) IgE (12/31/2024 2:50 PM CDT) Plantain moroccan IgE <0.10 0.00 - 0.34 kUnits/L Blood 12/31/2024 2:50 PM CDT 12/31/2024 5:30 PM CDT Alayna Clark MD LAB BLOOD ORDERABLES Final Result Performing Organization Address [facility] de Phone Number [facility] [place] [address] * Allergen Elm (tree) IgE (12/31/2024 2:50 PM CDT) Elm IgE <0.10 0.00 - 0.34 kUnits/L Blood 12/31/2024 2:50 PM CDT 12/31/2024 5:30 PM CDT Alayna Clark MD LAB BLOOD ORDERABLES Final Result Performing Organization Address [facility] de Phone Number [facility] [place] [address] * Allergen Cladosporium herbarum (mold) IgE (12/31/2024 2:50 PM CDT) Cladosporium herbarum IgE <0.10 0.00 - 0.34 kUnits/L Blood 12/31/2024 2:50 PM CDT 12/31/2024 5:30 PM CDT Alayna Clark MD LAB BLOOD ORDERABLES Final Result Performing Organization Address [facility] Co de Phone Number [facility] [place] [address] * Allergen Birch common silver (tree) IgE (12/31/2024 2:50 PM CDT) Birch common silver IgE <0.10 0.00 - 0.34 kUnits/L Blood 12/31/2024 2:50 PM CDT 12/31/2024 5:30 PM CDT Alayna Clark MD LAB BLOOD ORDERABLES Final Result Performing Organization Address [facility] de Phone Number [facility] [place] [address] * Allergen Alternaria tenuis (mold) IgE (12/31/2024 2:50 PM CDT) Alternaria tenius IgE <0.10 0.00 - 0.34 kUnits/L Blood 12/31/2024 2:50 PM CDT 12/31/2024 5:30 PM CDT Result [facility] Alayna Clark MD LAB BLOOD ORDERABLES Final Result Performing Organization Address [facility] Co de Phone Number [facility] [place] [address] * Allergen Aspergillus fumigatus (mold) IgE (12/31/2024 2:50 PM CDT) Aspergillus fumigatus IgE <0.10 0.00 - 0.34 kUnits/L Blood 12/31/2024 2:50 PM CDT 12/31/2024 5:30 PM CDT Alayna Clark MD LAB BLOOD ORDERABLES Final Result Performing Organization Address [facility] Co de Phone Number [facility] [place] [address] * Allergen Dermatophagoides pteronyssinus (insect) IgE (12/31/2024 2:50 PM CDT) Dermatophyton pteronyssinus IgE <0.10 0.00 - 0.34 kUnits/L Blood 12/31/2024 2:50 PM CDT 12/31/2024 5:30 PM CDT Alayna Clark MD LAB BLOOD ORDERABLES Final Result Performing Organization Address [facility] Co de Phone Number [facility] [place] [address] * Allergen Dermatophagoides farniae (insect) IgE (12/31/2024 2:50 PM CDT) Dermatophyton farinae IgE <0.10 0.00 - 0.34 kUnits/L Blood 12/31/2024 2:50 PM CDT 12/31/2024 5:30 PM CDT Alayna Clark MD LAB BLOOD ORDERABLES Final Result Performing Organization Address [facility] Co de Phone Number [facility] [place] [address] * Allergen Epithelia/dander dog (animal) IgE (12/31/2024 2:50 PM CDT) Dog dander IgE <0.10 0.00 - 0.34 kUnits/L Blood 12/31/2024 2:50 PM CDT 12/31/2024 5:30 PM CDT Alayna Clark MD LAB BLOOD ORDERABLES Final Result Performing Organization Address City/[facility]/ZIP Co de Phone Number [facility] [place] [address] * Allergen Cockroach bahamian (insect) IgE (12/31/2024 2:50 PM CDT) Cockroach IgE <0.10 0.00 - 0.34 kUnits/L Blood 12/31/2024 2:50 PM CDT 12/31/2024 5:30 PM CDT Alayna Clark MD LAB BLOOD ORDERABLES Final Result Performing Organization Address City/[facility]/[place] [address] * Allergen Epithelia/dander cat (animal) IgE (12/31/2024 2:50 PM CDT) Cat dander IgE <0.10 0.00 - 0.34 kUnits/L Blood 12/31/2024 2:50 PM CDT 12/31/2024 5:30 PM CDT Alayna Clark MD LAB BLOOD ORDERABLES Final Result Performing Organization Address City/[facility]/ZIP Co de Phone Number [facility] [place] [address] * Allergen Ragweed short/common (weed) IgE (12/31/2024 2:50 PM CDT) Ragweed common IgE <0.10 0.00 - 0.34 kUnits/L Blood 12/31/2024 2:50 PM CDT 12/31/2024 5:30 PM CDT Alayna Clark MD LAB BLOOD ORDERABLES Final Result [place] [address] * Allergen Pigweed, rough (weed) IgE (12/31/2024 2:50 PM CDT) Pigweed rough IgE <0.10 0.00 - 0.34 kUnits/L Blood 12/31/2024 2:50 PM CDT 12/31/2024 5:30 PM CDT Alayna Clark MD LAB BLOOD [place]AB[place] [address] * Allergen Nettle (weed) IgE (12/31/2024 2:50 PM CDT) Nettle IgE <0.10 0.00 - 0.34 kUnits/L Blood 12/31/2024 2:50 PM CDT 12/31/2024 5:30 PM CDT Result [facility] Alayna Clark MD LAB BLOOD ORDERABLES Final Result Performing Organization Address [facility] [place] [address] * Allergen Norman's quarter (weed) IgE (12/31/2024 2:50 PM CDT) Norman's quarters IgE <0.10 0.00 - 0.34 kUnits/L Blood 12/31/2024 2:50 PM CDT 12/31/2024 5:30 PM CDT Alayna Clark MD LAB BLOOD ORDERABLES Final Result Performing Organization Address City/[facility]/[place] [address] * Allergen Evans grass (grass) IgE (12/31/2024 2:50 PM CDT) Evans grass IgE <0.10 0.00 - 0.34 kUnits/L Blood 12/31/2024 2:50 PM CDT 12/31/2024 5:30 PM CDT Alayna Clark MD LAB BLOOD ORDERABLES Final Result Performing Organization Address City/[facility] Co de Phone Number [facility] [place] [address] * Allergen Thang grass (grass) IgE (12/31/2024 2:50 PM CDT) Pathologist [facility] Thang grass IgE <0.10 0.00 - 0.34 kUnits/L Blood 12/31/2024 2:50 PM CDT 12/31/2024 5:30 PM CDT Result [facility] Alayna Clark MD LAB BLOOD ORDERABLES Final Result Performing Organization Address [facility] de Phone Number [facility] [place] [address] * Allergen Clear[place] (tree) IgE (12/31/2024 2:50 PM CDT) Pathologist [facility] [place] (tree) IgE <0.10 0.00 - 0.34 kUnits/L Blood 12/31/2024 2:50 PM CDT 12/31/2024 5:30 PM CDT Alayna Clark MD LAB BLOOD ORDERABLES Final Result Performing Organization Address [facility] Co de Phone Number [facility] [place] [address] * Allergen [place] bahamian (tree) IgE (12/31/2024 2:50 PM CDT) [place] IgE <0.10 0.00 - 0.34 kUnits/L Blood 12/31/2024 2:50 PM CDT 12/31/2024 5:30 PM CDT Alayna Clark MD LAB BLOOD ORDERABLES Final Result Performing Organization Address [facility] Co de Phone Number [facility] [place] [address] * Allergen Maple/Box elder (tree) IgE (12/31/2024 2:50 PM CDT) Maple/box elder IgE <0.10 0.00 - 0.34 kUnits/L Blood 12/31/2024 2:50 PM CDT 12/31/2024 5:30 PM CDT Alayna Clark MD LAB BLOOD ORDERABLES Final Result Performing Organization Address [facility] de Phone Number [facility] [place] [address] * Allergen [place] red (tree) IgE (12/31/2024 2:50 PM CDT) [place] IgE <0.10 0.00 - 0.34 kUnits/L Blood 12/31/2024 2:50 PM CDT 12/31/2024 5:30 PM CDT Alayna Clark MD LAB BLOOD ORDERABLES Final Result Performing Organization Address [facility] Co de Phone Number [facility] [place] [address] * IgE (12/31/2024 2:50 PM CDT) IgE 10 <=100 IUnits/mL Blood 12/31/2024 2:50 PM CDT 12/31/2024 5:31 PM CDT Alayna Clark MD LAB BLOOD ORDERABLES Final Result Performing Organization Address City/[facility] Co de Phone Number [facility] [place] [address] * IgA (12/31/2024 2:50 PM CDT) Immunoglobulin A 121 70 - 400 mg/dL Blood 12/31/2024 2:50 PM CDT 12/31/2024 5:31 PM CDT Alayna Clark MD LAB BLOOD ORDERABLES Final Result Performing Organization Address [facility] de Phone Number [facility] [place] [address] * IgM (12/31/2024 2:50 PM CDT) Immunoglobulin M 114 40 - 230 mg/dL Blood 12/31/2024 2:50 PM CDT 12/31/2024 5:31 PM CDT Alayna Clark MD LAB BLOOD ORDERABLES Final Result Performing Organization Address [facility] de Phone Number [facility] [place] [address] * IgG (12/31/2024 2:50 PM CDT) Immunoglobulin G 753 700 - 1,600 mg/dL Blood 12/31/2024 2:50 PM CDT 12/31/2024 5:31 PM CDT Alayna Clark MD LAB BLOOD ORDERABLES Final Result Performing Organization Address City/[facility] Co de Phone Number [facility] [place] [address] * Colonoscopy (01/25/2018) Anatomical Region Laterality Modality Other us Historical Provider ENDOSCOPY PROCEDURES Yvette carrion Result * Diagnostic Mammogram Bilateral W Vinicio (11/13/2016 5:54 PM CDT) Anatomical Region Laterality Modality Breast Bilateral Mammography 11/13/2016 5:54 PM CDT Narrative 11/13/2016 2:24 PM CDT Lin AVILA M.D. FINAL REPORT The radiology attending physician has personally reviewed this study, and has reviewed and/or edited this written report and agrees with it. ACC# Date Time Exam [id number] Nov 13, 2016 12:54:00 [facility] [address] Dig Breast Vinicio Javon Technologist(s): Brenna Simpson; ; [id number] Nov 13, 2016 12:54:00 [facility] [address] [employer] CAD, bilat Technologist(s): Brenna Simpson; ; EXAMINATION: BILATERAL FULL FIELD DIGITAL DIAGNOSTIC MAMMOGRAM WITH CAD HISTORY: 41 year old woman presents for further evaluation after a negative left breast biopsy at an outside hospital. TECHNIQUE: Full field digital craniocaudal and mediolateral oblique views of both breasts were obtained. Computer Aided Detection was performed. COMPARISON: 24-17, 220-17, 20-15 BREAST PARENCHYMAL COMPOSITION: The breasts are heterogeneously dense, which may obscure small masses. FINDINGS: There is no evidence of suspicious mass, suspicious microcalcifications or architectural distortion within either breast on mammogram. A biopsy clip is noted at mid-depth in the 4:00 position of the left breast. IMPRESSION: OVERALL FINAL ASSESSMENT: BI-RADS Category 1: Negative. RECOMMENDATION: Annual screening mammography is recommended. ADDENDUM Addendum issued 7:20 AM on 12/04/[address] Rae. This addendum is being issued to amend the technique portion of this study. No changes are being made to either the findings or impression portion of this study. The technique portion should also state that digital breast tomosynthesis was performed and reviewed as a part of this examination. Requested By: Pau Frazier MD, PHD Dictated By: MOISES RAE M.D. on Nov 13 2016 1:35P This document has been electronically signed by: LIZETT PARKS M.D. on Nov 13 2016 2:24P Addendum Dictated by: MOISES RAE M.D. on Dec 04 2016 7:23A This Addendum has been electronically signed by: LIZETT PARKS M.D. on Dec 04 2016 1:16P [id number] Procedure Note Provider, MD Phu / Ryan Barron - 01/24/2017 LIZETT PARKS M.D. MOISES RAE M.D. FINAL REPORT The radiology attending physician has personally reviewed this study, and has reviewed and/or edited this written report and agrees with it. ACC# Date Time Exam [id number] Nov 13, 2016 12:54:00 [facility] [address] Dig Breast Vinicio Javon Technologist(s): Brenna Simpson; ; [id number] Nov 13, 2016 12:54:00 [facility] [address] [employer] CAD, bilat Technologist(s): Brenna Simpson; ; EXAMINATION: BILATERAL FULL FIELD DIGITAL DIAGNOSTIC MAMMOGRAM WITHCAD HISTORY: 41 year old woman presents for further evaluation after a negative left breast biopsy at an outside hospital. TECHNIQUE: Full field digital craniocaudal and mediolateral oblique views of both breasts were obtained. Computer Aided Detection was performed. COMPARISON: 10-27-16, 10-23-17, 06-22-15 BREAST PARENCHYMAL COMPOSITION: The breasts are heterogeneously dense, which may obscure small masses. FINDINGS: There is no evidence of suspicious mass, suspicious microcalcifications or architectural distortion within either breast on mammogram. A biopsy clip is noted at mid-depth in the 4:00 position of the left breast. IMPRESSION: OVERALL FINAL ASSESSMENT: BI-RADS Category 1: Negative. RECOMMENDATION: Annual screening mammography is recommended. ADDENDUM Addendum issued 7:20 AM on 12/04/[address] Rae. This addendum is being issued to amend the technique portion of this study. No changes are being made to either the findings or impression portion of this study. The technique portion should also state that digital breast tomosynthesis was performed and reviewed as a part of this examination. Requested By: Pau Frazier MD, PHD Dictated By: MOISES RAE M.D. on Nov 13 2016 1:35P This document has been electronically signed by: LIZETT PARKS M.D. on Nov 13 2016 2:24P Addendum Dictated by: MOISES RAE M.D. on Dec 04 2016 7:23A This Addendum has been electronically signed by: LIZETT PARKS M.D. on Dec 04 2016 1:16P [id number] us Not In File Miscellaneous IMG MAMMO PROCEDURES F inal Result from Last 3 Months or Most Recently Relevant to Health Maintenance Insurance [facility] Advance Directives For more information, please contact: [phone] * LIMITED - No CPR (Latest Code Status on File) Date Activated Date Inactivated Comments 09/16/2020 12:01 PM 09/18/2020 5:09 PM Question Answer Comments Provide aggressive medical m anagement before a full cardiopulmonary arrest occurs. Use antibiotics, IV Fluids, and medical treatment unless specifically selected below: No intubationNo non-invasive ventilationNo cardioversionNo internal / external pacemakerNo vasopressors Discussed with the following attending physician: Discussed with Adriana Mandujano NP * Full Code Date Activated Date Inactivated Comments 09/15/2020 3:20 PM 09/16/2020 12:01 PM * Full Code Date Activated Date Inactivated Comments 02/16/2020 10:04 AM 02/17/2020 8:28 PM * Full Code Date Activated Date Inactivated Comments 11/14/2019 9:19 PM 11/20/2019 9:02 PM * Full Code Date Activated Date Inactivated Comments 03/20/2018 8:25 AM 03/20/2018 1:41 PM Care Teams Assistant Production Manager Relationship Specialty Start Date End Date Fidel Santana MD [address] [place] [address] [address] PCP - General Internal Medicine 09/15/20 Noam Minor MD [address] [facility] [address] [place] [address] Consulting Physician Gastroenterology 11/20/19 Basilio Powers MD [address] [facility] [address] [place] [address] Surgeon General Surgery 11/20/19 Sourav French MD [address] [facility] [address] [place] [address] Consulting Physician Gastroenterology 02/17/20 Destiney Prajapati MD PhD [address] [facility], [address] [place] [address] Referring Physician Ophthalmology 10/22/20 Rk Krishnamurthy MD [address] [facility], [address] [place] [address] Resident Ophthalmology 10/22/20
--- OUTSIDE RECORDS SUMMARY | 2025-01-22 13:10 | XMS_ITS | Clinical Summary ---
Author Organization [facility] al Address [address] [place] [address] Care Team Providers Care Tar Roofer Name Role Phone Noam Minor MD Unavailable Basilio Powers MD Unavailable [phone] Sourav French MD Unavailable [phone] Fidel Santana MD Primary Care Provider [place], Destiney London MD PhD Unavailable Rk Krishnamurthy MD Unavailable Allergies Active Allergy Reactions Criticality Noted Date [...] 8 (eight) hours as needed for pain Active Additional Information Patient not taking.Reported on [...] 1 drop 2 (two) times a day 022 Active sucralfate (CARAFATE) suspension 1 gram/10 mL TAKE 10 ML BY MOUTH FOUR TIMES DAILY NEEDED 022 Active hydrOXYzine (ATARAX) 25 mg tablet Take 1 tablet (25 mg total) by mouth 3 (three) times a day as needed 024 Active magnesium hydroxide (PAN CHEWS) 311 mg tablet,chewable chewable tablet Take 1 tablet (311 mg total) by mouth every 12 (twelve) hours as needed Active meloxicam (MOBIC) 15 mg tablet Take 1 tablet (15 mg total) by mouth daily 025 Active SUMAtriptan (IMITREX) 100 mg tablet Take 1 tablet (100 mg total) by mouth once as needed 024 Active BD Luer-Deshaun Syringe 3 mL 25 x 5/8 syringe INJECT 1 SYRINGE SUBCUTANEOUSLY EVERY 14 DAY 025 Active syringe with needle, safety (BD Integra Syringe) 3 mL 23 gauge x 1 syringe USE WITH VITAMIN-BEFORE INJECTION ONCE A WEEK Active tiZANidine (ZANAFLEX) 4 mg tablet Take 1 tablet (4 mg total) by mouth nightly 025 Active gabapentin (NEURONTIN) 100 mg capsule Take [...] 12/02/2021 Assessment & Plan (08/14/2022 3:50 PM SHOW JUMPING INSTRUCTOR): Patient is clinically euthyroid TSH was normal [...] off Cytomel. Patient to check with her desilverizer regarding cardiac symptoms. The proper way of [...] 10/27/2020 Assessment & Plan (10/27/2020 3:44 PM SHOW JUMPING INSTRUCTOR): Etiology of low cortisol <1 at OSH [...] 10/27/2020 Assessment & Plan (10/27/2020 3:47 PM SHOW JUMPING INSTRUCTOR): Clinically euthyroid Thyroid exam shows no enlargement, [...] she got a new prescription from her rubbish collector. Began having dull pain at the back of both eyes in late Aug. Saw her rubbish collector (Dr. Ajay Desir in [place]) again, who performed testing and referred her [...] 2004. Assessment & Plan (09/21/2020 5:00 PM SHOW JUMPING INSTRUCTOR): --Exam today with [facility] decreased at distance [...] (02/16/2020): Added automatically from request for surgery [id number] Assessment & Plan (03/13/2020 11:03 AM CDT): [...] 8 Assessment & Plan (08/19/2018 12:26 PM SHOW JUMPING INSTRUCTOR): I believe she also may have a [...] did not benefit from physical therapy in [place]. I would like her to see a [facility] motility/neuro gastroenterology unit. Severe protein-calorie malnutrition 02/25/2018 Assessment & Plan (11/20/2019 12:30 PM CDT): Will try to improve this now that she is on meclizine. She will call dr. Powers if she decides she wants jejunal feeding tube. She will activate [employer] so she can communicate with Dr. French, her private GI doc [place] to discharge Esophageal dysphagia 02/12/2018 Assessment & Plan (11/17/2019 5:40 PM CDT): Multiple scopes and never inflammation or stricture. 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 Assessment & Plan (08/19/2018 12:27 PM SHOW JUMPING INSTRUCTOR): Improved after dilation. She also maintains on [...] 02/12/2018 Assessment & Plan (08/19/2018 12:27 PM SHOW JUMPING INSTRUCTOR): Seeing Hematology and has been repleted. This [...] Anastomotic ulcer S/P gastric bypass 11/07/2016 02/12/2018 Encounters Date Type Department Care Team Description 01/15/2025 1:50 PM CDT Clinical Support [facility] Allergy and Immunology [address] [place] [address] Environmental and seasonal allergies (Primary Dx) 01/09/2025 Orders Only [facility] Allergy and Immunology [address] [place] [address] Alayna Clark MD Recurrent infections (Primary Dx) 01/01/2025 Telephone [facility] Allergy and Immunology [address] [place] [address] Emerita Norman RN 12/31/2024 2:45 PM CDT Lab [facility] [address] [place] [address] Recurrent infections 12/31/2024 2:00 PM CDT Office Visit [facility] Allergy and Immunology [address] [place] [address] Alayna Clark MD Recurrent infections from Last 3 Months Immunizations Immunization Administration Dates Next Due Pneumococcal Polysaccharide PPV23 01/15/2025 Surgical History Surgery Date Site/Laterality Comments COLONOSCOPY 01/25/2018 Normal. The colon was tortuous, loopy & capacious in some area. UPPER GASTROINTESTINAL ENDOSCOPY 01/25/2018 Pt. had a 5 cm gastric remnant. The anastomosis was narrowed & had a one cm round & white based ulcer. One non-bleeding gastric ulcer was found at the anastomosis COLONOSCOPY 11/02/2011 - 12/02/2011 UPPER GASTROINTESTINAL ENDOSCOPY 11/02/2011 - 12/02/2011 GASTRIC BYPASS 09/03/2004 - 10/03/2004 CHOLECYSTECTOMY 08/03/2005 - 09/02/2005 TONSILLECTOMY 11/02/2011 - 12/02/2011 HERNIA REPAIR 09/03/2013 - 09/02/2014 internal hernia repair HYSTERECTOMY UPPER GASTROINTESTINAL ENDOSCOPY 03/20/2018 Focal mild chronic inflammation. Focal reactive change. negative for ulcer formation, dysplasia or carcinoma UPPER GASTROINTESTINAL ENDOSCOPY 11/18/2019 Gastric bypass with a small-sized pouch and intact staple line. Medical History Medical History Date Comments Migraines GERD (gastroesophageal reflux disease) Stomach ulcer Dysphagia Weight loss Irritable bowel syndrome Family History Medical History Relation Name Comments Esophageal cancer Father's Brother 1 Colon cancer Father's Brother 2 Lupus Mother's Sister 1 Celiac disease Mother's Sister 2 Crohn's disease Mother's Sister 3 Leukemia Paternal Grandfather Relation Name Status Comments Father's Brother 1 Father's Brother 2 Mother's Sister 1 Mother's Sister 2 Mother's Sister 3 Paternal Grandfather Social History Tobacco Use Types Packs/Day Years [...] often do you attend chur ch or church services? More than 4 times per year 11/18/2019 Do you belong to any clubs o r organizations such as presybeterian groups, unions, fraternal or athletic groups, or [...] on file Legal Sex Female 7:04 AM SHOW JUMPING INSTRUCTOR Gender Identity Female 10/20/2020 2:10 PM SHOW JUMPING INSTRUCTOR Sexual Orientation Straight 10/20/2020 2: 10 PM SHOW JUMPING INSTRUCTOR Obstetrics History Last Filed Vital Signs Vital Sign Reading [...] 12/31/2024 1:31 PM CDT Plan of Treatment Health Maintenance Due Date Last Done Comments Depression Screening 1974 Hepatitis C Screening 1974 Regular Well Visit/Exam 18-64 1992 Zoster Vaccine (1 of 2) 2024 Breast Cancer Screening-Mammogram 06/18/2025 06/18/2024, 06/18/2024, 11/13/2016, Additional history exists Colon Cancer Screening-Colonoscopy 01/26/2028 01/25/2018 DTaP/Tdap/Td Vaccine (2 - Td or Tdap) 04/01/2034 04/01/2024 Hepatitis B Screening Completed 04/30/2024, 024 Influenza Vaccine Completed 05/30/2024, , 05/26/2021, Additional history exists Pneumococcal vaccine <65 Aged Out 01/15/2025 No longer eligible based on patient's age to complete this topic Medical Devices Implanted Type Area Punch Machine Operator Device Identifier Shelf Expiration Date Model / [...] 2:50 PM CDT Recurrent infections ALLERGEN SYCAMORE COSTA RICAN (TREE) IGE Routine 12/31/2024 2:50 PM CDT Recurrent infections ALLERGEN WALNUT (TREE) IGE Routine 12/31/2024 2:50 PM CDT Recurrent infections ALLERGEN BERMUDA GRASS (GRASS) IGE Routine 12/31/2024 2:50 PM CDT Recurrent infections ALLERGEN THANG GRASS (GRASS) IGE Routine 12/31/2024 2:50 PM CDT Recurrent infections ALLERGEN EVANS GRASS (GRASS) IGE Routine 12/31/2024 2:50 PM CDT Recurrent infections ALLERGEN PLANTAIN PALAUAN (WEED) IGE Routine 12/31/2024 2:50 PM CDT [...] 2:50 PM CDT Recurrent infections ALLERGEN COCKROACH COSTA RICAN (INSECT) IGE Routine 12/31/2024 2:50 PM CDT [...] mix (animal) IgE (12/31/2024 2:50 PM CDT) Pathologist [facility] Rat mix IgE <0.10 0.00 - 0.34 kUnits/L Blood 12/31/2024 2:50 PM CDT 12/31/2024 5:30 PM CDT Alayna Clark MD LAB BLOOD ORDERABLES Final Result Performing Organization Address [facility] Co de Phone Number [facility] [place] [address] * Allergen Mouse mix (animal) IgE (12/31/2024 2:50 PM CDT) [facility] Mouse mix IgE <0.10 0.00 - 0.34 kUnits/L Blood 12/31/2024 2:50 PM CDT 12/31/2024 5:30 PM CDT Alayna Clark MD LAB BLOOD ORDERABLES Final Result Performing Organization Address City/[facility]/ZIP Co de Phone Number [facility] [place] [address] * Lymphocyte Subpopulation 13 (12/31/2024 2:50 PM CDT) [facility] WBC 7.56 3.80 - 9.90 K/cumm Lymphocyte pct 23.9 20.0 - 54.3 % [facility] Lymphocyte abs 1,807 /cumm [facility] CD3 pct 81 60 - 88 % [facility] CD3 abs 1,464 661 - 1,963 /cumm [facility] CD4 pct 45 31 - 64 % [facility] CD4 abs 813 365 - 1,294 /cumm [facility] CD8 pct 29 12 - 40 % [facility] CD8 abs 524 187 - 781 /cumm [facility] CD19 pct 13 6 - 25 % [facility] CD19 abs 235 86 - 488 /cumm [facility] [id number] pct 6 5 - 25 % [facility] [id number] abs 108 76 - 467 /cumm [facility] CD2 pct 84 % [facility] CD2 abs 1,518 /cumm [facility] CD40 pct 13 % [facility] CD40 abs 235 /cumm [facility] HLA-DR pct 16 % [facility] HLA-DR abs 289 /cumm [facility] CD3 HLA-DR pct 2 % [facility] CD3 HLA-DR abs 36 /cumm [facility] CD16 pct 5 % [facility] CD16 abs 90 /cumm [facility] TCR alpha/beta pct 72 % [facility] TCR alpha/beta abs 1,301 /cumm [facility] TCR gamma/delta pct 7 % [facility] TCR gamma/delta abs 126 /cumm [facility] HLA-ABC pct 100 % [facility] HLA-ABC abs 1,807 /cumm [facility] beta-2 microglobulin pct 100 % [facility] beta-2 microglobulin abs 1,807 /cumm [facility] CD4/CD8 ratio 1.6 [facility] Blood 12/31/2024 2:50 PM CDT 12/31/2024 5:30 PM CDT Narrative [facility] - 12/31/2024 10:46 PM CDT This test was developed and its performance characteristics determined by the [facility] Flow Cyt[facility]. It has not been [...] Clark MD LAB BLOOD ORDERABLES Final Result [facility] [place] [address] * Allergen Penicillium chrysogenum (mold) IgE (12/31/2024 2:50 PM CDT) Penicillium chrysogenum IgE <0.10 0.00 - 0.34 kUnits/L Blood 12/31/2024 2:50 PM CDT 12/31/2024 5:30 PM CDT Alayna Clark MD LAB BLOOD ORDERABLES Final Result Performing Organization Address City/[facility]/[place] [address] * Allergen Ozone (tree) IgE (12/31/2024 2:50 PM CDT) Ozone IgE <0.10 0.00 - 0.34 kUnits/L Blood 12/31/2024 2:50 PM CDT 12/31/2024 5:30 PM CDT Alayna Clark MD LAB BLOOD ORDERABLES Final Result Performing Organization Address [facility]/ZIP Co de Phone Number [facility] [place] [address] * Allergen Mountain juniper (tree) IgE (12/31/2024 2:50 PM CDT) Mountain juniper IgE <0.10 0.00 - 0.34 kUnits/L Blood 12/31/2024 2:50 PM CDT 12/31/2024 5:30 PM CDT Alayna Clark MD LAB BLOOD ORDERABLES Final Result [facility] [place] [address] * Tetanus antibody, IgG (12/31/2024 2:50 PM CDT) Pathologist [facility] Tetanus IgG Ab Positive [facility] Comment: REFERENCE VALUE Vaccinated: Positive (>= 0.01 IU/mL) Unvaccinated: Negative (< 0.01 IU/mL) Tetanus IgG Value 1.62 IUnits/mL [facility] Comment: ADDITIONAL INFORMATION This test was developed and its performance characteristics determined by [facility] in a manner consistent with CLIA requirements. This test has not been cleared or approved by the U.S. Food and Drug Administration. Test Performed by: [facility] [place] [address] Carcass Splitter: Oseas Beltrán Ph.D.; CLIA# [id number] Blood 12/31/2024 2:50 PM CDT 12/31/2024 6:31 PM CDT us Alayna Clark MD LAB BLOOD ORDERABLES Final Result [facility] [place] [address] [facility] * Strep pneumoniae antibody serotypes (12/31/2024 2:50 PM CDT) Pathologist [facility] S. pneumo Type 1 (1) 0.7 >=1.0 mcg/mL [facility] S. pneumo Type 2 (2) 1.0 >=1.0 mcg/mL [facility] S. pneumo Type 3 (3) 0.2 >=1.0 mcg/mL [facility] S. pneumo Type 4 (4) 0.2 >=1.0 mcg/mL [facility] S. pneumo Type 5 (5) 0.4 >=1.0 [...] developed and its performance characteristics determined by [facility] in a manner consistent with CLIA requirements. This test has not been cleared or approved by the U.S. Food and Drug Administration. Test Performed by: [facility] [place] [address] Carcass Splitter: Oseas Beltrán Ph.D.; CLIA# [id number] Blood 12/31/2024 2:50 PM CDT 12/31/2024 7:03 PM CDT us Alayna Clark MD LAB BLOOD ORDERABLES Final Result [facility] [place] [address] [facility] * Allergen Bermuda grass (grass) IgE (12/31/2024 2:50 PM CDT) [facility] Signature Bermuda grass IgE <0.10 0.00 - 0.34 kUnits/L Blood 12/31/2024 2:50 PM CDT 12/31/2024 5:30 PM CDT Alayna Clark MD LAB BLOOD ORDERABLES Final Result Performing Organization Address [facility] de Phone Number [facility] [place] [address] * Allergen Plantain french (weed) IgE (12/31/2024 2:50 PM CDT) Plantain french IgE <0.10 0.00 - 0.34 kUnits/L Blood 12/31/2024 2:50 PM CDT 12/31/2024 5:30 PM CDT Alayna Clark MD LAB BLOOD ORDERABLES Final Result Performing Organization Address [facility] de Phone Number [facility] [place] [address] * Allergen Elm (tree) IgE (12/31/2024 2:50 PM CDT) Elm IgE <0.10 0.00 - 0.34 kUnits/L Blood 12/31/2024 2:50 PM CDT 12/31/2024 5:30 PM CDT Alayna Clark MD LAB BLOOD ORDERABLES Final Result Performing Organization Address [facility] de Phone Number [facility] [place] [address] * Allergen Cladosporium herbarum (mold) IgE (12/31/2024 2:50 PM CDT) Cladosporium herbarum IgE <0.10 0.00 - 0.34 kUnits/L Blood 12/31/2024 2:50 PM CDT 12/31/2024 5:30 PM CDT Alayna Clark MD LAB BLOOD ORDERABLES Final Result Performing Organization Address [facility] Co de Phone Number [facility] [place] [address] * Allergen Birch common silver (tree) IgE (12/31/2024 2:50 PM CDT) Birch common silver IgE <0.10 0.00 - 0.34 kUnits/L Blood 12/31/2024 2:50 PM CDT 12/31/2024 5:30 PM CDT Alayna Clark MD LAB BLOOD ORDERABLES Final Result Performing Organization Address [facility] de Phone Number [facility] [place] [address] * Allergen Alternaria tenuis (mold) IgE (12/31/2024 2:50 PM CDT) Alternaria tenius IgE <0.10 0.00 - 0.34 kUnits/L Blood 12/31/2024 2:50 PM CDT 12/31/2024 5:30 PM CDT Alayna Clark MD LAB BLOOD ORDERABLES Final Result Performing Organization Address [facility] Co de Phone Number [facility] [place] [address] * Allergen Aspergillus fumigatus (mold) IgE (12/31/2024 2:50 PM CDT) Aspergillus fumigatus IgE <0.10 0.00 - 0.34 kUnits/L Blood 12/31/2024 2:50 PM CDT 12/31/2024 5:30 PM CDT Alayna Clark MD LAB BLOOD ORDERABLES Final Result Performing Organization Address [facility] Co de Phone Number [facility] [place] [address] * Allergen Dermatophagoides pteronyssinus (insect) IgE (12/31/2024 2:50 PM CDT) Dermatophyton pteronyssinus IgE <0.10 0.00 - 0.34 kUnits/L Blood 12/31/2024 2:50 PM CDT 12/31/2024 5:30 PM CDT Alayna Clark MD LAB BLOOD ORDERABLES Final Result Performing Organization Address [facility] de Phone Number [facility] [place] [address] * Allergen Dermatophagoides farniae (insect) IgE (12/31/2024 2:50 PM CDT) Dermatophyton farinae IgE <0.10 0.00 - 0.34 kUnits/L Blood 12/31/2024 2:50 PM CDT 12/31/2024 5:30 PM CDT Alayna Clark MD LAB BLOOD ORDERABLES Final Result Performing Organization Address [facility] Co de Phone Number [facility] [place] [address] * Allergen Epithelia/dander dog (animal) IgE (12/31/2024 2:50 PM CDT) Dog dander IgE <0.10 0.00 - 0.34 kUnits/L Blood 12/31/2024 2:50 PM CDT 12/31/2024 5:30 PM CDT Alayna Clark MD LAB BLOOD ORDERABLES Final Result Performing Organization Address [facility] Co de Phone Number [facility] [place] [address] * Allergen Cockroach portuguese (insect) IgE (12/31/2024 2:50 PM CDT) Cockroach IgE <0.10 0.00 - 0.34 kUnits/L Blood 12/31/2024 2:50 PM CDT 12/31/2024 5:30 PM CDT Alayna Clark MD LAB BLOOD ORDERABLES Final Result Performing Organization Address [facility] de Phone Number [facility] [place] [address] * Allergen Epithelia/dander cat (animal) IgE (12/31/2024 2:50 PM CDT) Cat dander IgE <0.10 0.00 - 0.34 kUnits/L Blood 12/31/2024 2:50 PM CDT 12/31/2024 5:30 PM CDT Alayna Clark MD LAB BLOOD ORDERABLES Final Result Performing Organization Address [facility] de Phone Number [facility] [place] [address] * Allergen Ragweed short/common (weed) IgE (12/31/2024 2:50 PM CDT) Ragweed common IgE <0.10 0.00 - 0.34 kUnits/L Blood 12/31/2024 2:50 PM CDT 12/31/2024 5:30 PM CDT Alayna Clark MD LAB BLOOD ORDERABLES Final Result Performing Organization Address [facility] Co de Phone Number [place] [address] * Allergen Pigweed, rough (weed) IgE (12/31/2024 2:50 PM CDT) Pigweed rough IgE <0.10 0.00 - 0.34 kUnits/L Blood 12/31/2024 2:50 PM CDT 12/31/2024 5:30 PM CDT Alayna Clark MD LAB BLOOD ORDERABLES Final Result Performing Organization Address [facility] [place] [address] * Allergen Nettle (weed) IgE (12/31/2024 2:50 PM CDT) Pathologist [facility] Nettle IgE <0.10 0.00 - 0.34 kUnits/L Blood 12/31/2024 2:50 PM CDT 12/31/2024 5:30 PM CDT Result [facility] Alayna Clark MD LAB BLOOD ORDERABLES Final Result Performing Organization Address [facility] Co de Phone Number [facility] [place] [address] * Allergen Norman's quarter (weed) IgE (12/31/2024 2:50 PM CDT) Norman's quarters IgE <0.10 0.00 - 0.34 kUnits/L Blood 12/31/2024 2:50 PM CDT 12/31/2024 5:30 PM CDT Result [facility] Alayna Clark MD LAB BLOOD ORDERABLES Final Result Performing Organization Address [facility] Co de Phone Number [facility] [place] [address] * Allergen Evans grass (grass) IgE (12/31/2024 2:50 PM CDT) Evans grass IgE <0.10 0.00 - 0.34 kUnits/L Blood 12/31/2024 2:50 PM CDT 12/31/2024 5:30 PM CDT Alayna Clark MD LAB BLOOD ORDERABLES Final Result Performing Organization Address [facility] Co de Phone Number [facility] [place] [address] * Allergen Thang grass (grass) IgE (12/31/2024 2:50 PM CDT) Pathologist [facility] Thang grass IgE <0.10 0.00 - 0.34 kUnits/L Blood 12/31/2024 2:50 PM CDT 12/31/2024 5:30 PM CDT Alayna Clark MD LAB BLOOD ORDERABLES Final Result Performing Organization Address [facility] Co de Phone Number [facility] [place] [address] * Allergen Mindoro (tree) IgE (12/31/2024 2:50 PM CDT) Pathologist [facility] Mindoro (tree) IgE <0.10 0.00 - 0.34 kUnits/L Blood 12/31/2024 2:50 PM CDT 12/31/2024 5:30 PM CDT Alayna Clark MD LAB BLOOD ORDERABLES Final Result Performing Organization Address [facility] Co de Phone Number [facility] [place] [address] * Allergen [place] portuguese (tree) IgE (12/31/2024 2:50 PM CDT) [place] IgE <0.10 0.00 - 0.34 kUnits/L Blood 12/31/2024 2:50 PM CDT 12/31/2024 5:30 PM CDT Alayna Clark MD LAB BLOOD ORDERABLES Final Result Performing Organization Address [facility] Co de Phone Number [facility] [place] [address] * Allergen Maple/Box elder (tree) IgE (12/31/2024 2:50 PM CDT) Maple/box elder IgE <0.10 0.00 - 0.34 kUnits/L Blood 12/31/2024 2:50 PM CDT 12/31/2024 5:30 PM CDT Alayna Clark MD LAB BLOOD ORDERABLES Final Result Performing Organization Address [facility] Co de Phone Number [facility] [place] [address] * Allergen Seguin red (tree) IgE (12/31/2024 2:50 PM CDT) Seguin IgE <0.10 0.00 - 0.34 kUnits/L Blood 12/31/2024 2:50 PM CDT 12/31/2024 5:30 PM CDT Alayna Clark MD LAB BLOOD ORDERABLES Final Result Performing Organization Address [facility] Co de Phone Number [facility] [place] [address] * IgE (12/31/2024 2:50 PM CDT) IgE 10 <=100 IUnits/mL Blood 12/31/2024 2:50 PM CDT 12/31/2024 5:31 PM CDT Alayna Clark MD LAB BLOOD ORDERABLES Final Result Performing Organization Address [facility] Co de Phone Number [facility] [place] [address] * IgA (12/31/2024 2:50 PM CDT) Immunoglobulin A 121 70 - 400 mg/dL Blood 12/31/2024 2:50 PM CDT 12/31/2024 5:31 PM CDT Alayna Clark MD LAB BLOOD ORDERABLES Final Result Performing Organization Address [facility] Co de Phone Number [facility] [place] [address] * IgM (12/31/2024 2:50 PM CDT) Immunoglobulin M 114 40 - 230 mg/dL Blood 12/31/2024 2:50 PM CDT 12/31/2024 5:31 PM CDT Alayna Clark MD LAB BLOOD ORDERABLES Final Result Performing Organization Address [facility] Co de Phone Number [facility] [place] [address] * IgG (12/31/2024 2:50 PM CDT) Immunoglobulin G 753 700 - 1,600 mg/dL Blood 12/31/2024 2:50 PM CDT 12/31/2024 5:31 PM CDT Alayna Clark MD LAB BLOOD ORDERABLES Final Result Performing Organization Address [facility] Co de Phone Number [facility] [place] [address] * Colonoscopy (01/25/2018) Anatomical Region Laterality Modality Other us Historical Provider ENDOSCOPY PROCEDURES Yvette carrion Result * Diagnostic Mammogram Bilateral W Vinicio (11/13/2016 5:54 PM CDT) Anatomical Region Laterality Modality Breast Bilateral Mammography 11/13/2016 5:54 PM CDT Narrative 11/13/2016 2:24 PM CDT LIZETT PARKS M.D. MOISES RAE M.D. FINAL REPORT The radiology attending physician has personally reviewed this study, and has reviewed and/or edited this written report and agrees with it. ACC# Date Time Exam [id number] Nov 13, 2016 12:54:00 [facility] [address] Dig Breast Vinicio Javon Technologist(s): Brenna Simpson; ; [id number] Nov 13, 2016 12:54:00 [facility] [address] Diag Mamm, inc CAD, bilat Technologist(s): Brenna Simpson; ; EXAMINATION: BILATERAL FULL FIELD DIGITAL DIAGNOSTIC MAMMOGRAM WITH CAD HISTORY: 41 year old woman presents for further evaluation after a negative left breast biopsy at an outside hospital. TECHNIQUE: Full field digital craniocaudal and mediolateral oblique views of both breasts were obtained. Computer Aided Detection was performed. COMPARISON: 2-24-17, 2-20-17, 10-20-15 BREAST PARENCHYMAL COMPOSITION: The breasts are heterogeneously [...] PARKS M.D. on Dec 04 2016 1:16P [id number] Procedure Note Provider, MD Phu / Beatrice, Ryan - 01/24/2017 LIZETT PARKS M.D. MOISES RAE M.D. FINAL REPORT The radiology attending physician has personally reviewed this study, and has reviewed and/or edited this written report and agrees with it. ACC# Date Time Exam [id number] Nov 13, 2016 12:54:00 [facility] [address] Dig Breast Vinicio Javon Technologist(s): Brenna Simpson; ; [id number] Nov 13, 2016 12:54:00 [facility] [address] Diag Mamm, inc CAD, bilat Technologist(s): Brenna Simpson; ; EXAMINATION: BILATERAL FULL FIELD DIGITAL DIAGNOSTIC MAMMOGRAM WITHCAD HISTORY: 41 year old woman presents for further evaluation after a negative left breast biopsy at an outside hospital. TECHNIQUE: Full field digital craniocaudal and mediolateral oblique views of both breasts were obtained. Computer Aided Detection was performed. COMPARISON: 10-27-17, 10-23-17, 06-22-15 BREAST PARENCHYMAL COMPOSITION: The breasts [...] PARKS M.D. on Dec 04 2016 1:16P [id number] us Not In File Miscellaneous IMG MAMMO PROCEDURES F inal Result from Last 3 Months or Most Recently Relevant to Health Maintenance Insurance [facility] [employer]ERAL Advance Directives For more information, please contact: [phone] * LIMITED - No CPR (Latest Code [...] 8:25 AM 03/20/2018 1:41 PM Care Teams Tar Roofer Relationship Specialty Start Date End Date Fidel Santana MD [address] [facility] [address] [address] PCP - General Internal Medicine 09/15/20 Noam Minor MD [address] [address] Consulting Physician Gastroenterology 11/20/19 Basilio Powers MD [address] [facility] [address] [place] [address] Surgeon General Surgery 11/20/19 Sourav French MD [address] [facility] [address], [place] [address] Consulting Physician Gastroenterology 02/17/20 Destiney Prajapati MD PhD [address] DEPT OPTHALMOLOGY, [address] [place] [address] Referring Physician Ophthalmology 10/22/20 Rk Krishnamurthy MD [address] DEPT OPTHALMOLOGY, [address] [place] [id number] Resident Ophthalmology 10/22/20
== END 2025-01-22 13:04 | disposition home or self-care (01) ==
PROVIDERS: Visit Provider Urology
DX: R31.0 Gross hematuria (principal); M25.551 Pain in right hip; R10.2 Pelvic and perineal pain; M62.89 Other specified disorders of muscle; N39.0 Urinary tract infection, site not specified
CPT/HCPCS: 74178; Q9967